=== PATIENT | female | born 1985 | race Caucasian/White ===

== ENCOUNTER 2020-05-07 15:02 | Outpatient (REF) | payer OTHER, SELFPAY ==
--- NOTE | 2020-05-07 15:29 | XR_ITS ---
EXAMINATION: XR WRIST, LEFT CLINICAL INFORMATION: Unspecified fracture of the lower end of the left radius. COMPARISON: 04/14/2020 TECHNIQUE: PA, lateral, and oblique views of the left wrist. FINDINGS: Intra-articular comminuted distal left radial fracture is again noted. Alignment is near-anatomic. There is early callus formation noted. The carpal rows are well aligned. Mild soft tissue swelling. IMPRESSION: Comminuted intra-articular distal left radial fracture with near-anatomic alignment. Early callus formation.
== END 2020-05-07 15:03 | disposition home or self-care (01) ==
LOC: HO.HOSX 15:02
PROVIDERS: PCP Internal Medicine; Visit Provider Physician Assistant
DX: S52.502A Unspecified fracture of the lower end of left radius, initial encounter for closed fracture (principal); S52.532A Colles' fracture of left radius, initial encounter for closed fracture; X58.XXXA Exposure to other specified factors, initial encounter; Y93.9 Activity, unspecified; Y92.9 Unspecified place or not applicable; Y99.8 Other external cause status
CPT/HCPCS: 29075; 73110; 99212

== ENCOUNTER 2020-05-28 14:38 | Outpatient (REF) | payer OTHER, SELFPAY ==
--- NOTE | 2020-05-28 14:43 | XR_ITS ---
EXAMINATION: XR WRIST, LEFT CLINICAL INFORMATION: Fracture lower end of left radius and COMPARISON: Left wrist 05/07/2020 TECHNIQUE: PA, lateral, and oblique views of the left wrist. FINDINGS: There is a comminuted fracture distal radius intra-articular extension, stable. No additional fractures seen. There is mild dorsal and palmar wrist soft tissue swelling. XR/XR wrist LT 2V IMPRESSION: Comminuted fracture distal radius with intra-articular extension and mild soft tissue swelling. There is likely some callus formation visualized.
== END 2020-05-28 14:39 | disposition home or self-care (01) ==
LOC: HO.HOSX 14:38
PROVIDERS: Visit Provider Physician Assistant
DX: S52.502D Unspecified fracture of the lower end of left radius, subsequent encounter for closed fracture with routine healing (principal)
CPT/HCPCS: 73100; 99212

== ENCOUNTER 2021-01-22 22:49 | Emergency (ER) | payer OTHER, SELFPAY ==
--- NOTE | 2021-01-22 23:16 | PC.NURSE ---
PT REPORTS THAT SHE NEEDS TO LEAVE, BECAUSE HER ONLY RIDE HOME NEEDS TO LEAVE NOW.
== END 2021-01-22 23:20 | disposition left against medical advice (07) ==
PROVIDERS: Emergency Provider Emergency Medicine
DX: M79.89 Other specified soft tissue disorders (principal)

== ENCOUNTER 2022-01-22 23:24 | Emergency (ER) | payer MEDICAID, SELFPAY ==
[2022-01-22 23:29] VITALS: BP 142/88; PULSE 87; RESP 18; TEMP 37.2; O2SAT 98; BMI 28.2
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
--- NOTE | 2022-01-23 02:35 | PC.NURSE ---
medicated per provider order.
== END 2022-01-23 03:02 | disposition home or self-care (01) ==
PROVIDERS: Emergency Provider Emergency Medicine
DX: L03.116 Cellulitis of left lower limb (principal); Z79.899 Other long term (current) drug therapy
CPT/HCPCS: 99282; 99283

== ENCOUNTER 2022-02-05 11:21 | Emergency (ER) | payer OTHER, SELFPAY ==
[2022-02-05 11:48] VITALS: BP 113/78; PULSE 62; RESP 18; TEMP 36.6; O2SAT 96; BMI 28.0
--- NOTE | 2022-02-05 12:32 | ED.GENADULT ---
HPI - General Adult General Chief complaint: General Medical Stated complaint: missed methadone dose Time Seen by Provider: 02/05/22 12:23 Source: patient Mode of arrival: ambulatory Limitations: no limitations History of Present Illness HPI narrative: 36-year-old female with a history of opioid use disorder on methadone 40 mg per day who presents to the ER for dose of her methadone. She was unable to get her clinic today. She uses [facility] on [address] and just started there less than 2 weeks ago. She was unfamiliar with their weekend hours. She reports she was sober for 2.5 years and relapsed in August. She lives with her boyfriend who is sober and a good support system for her. complaint: missed methadone dose Relieving factors: none Exacerbating factors: none Associated symptoms: denies other symptoms Treatments prior to arrival: none Related Data Home Medications Medication Instructions Recorded Confirmed dextroamphetamine-amphetamine ER 1 cap PO BID 04/22/20 25 mg 24hr capsule,extend release escitalopram oxalate 10 mg tablet 10 mg PO QAM 04/22/20 furosemide 20 mg tablet 20 mg PO DAILY 04/22/20 lorazepam 1 mg tablet mg PO 04/22/20 oxycodone 5 mg tablet mg PO Q6H PRN 04/22/20 zolpidem 5 mg tablet 5 mg PO BEDTIME PRN 04/22/20 Previous Rx's Medication Instructions Recorded arm brace (Wrist Brace) #1 ea 05/29/20 doxycycline hyclate 100 mg tablet 100 mg PO BID #20 tabs 01/23/22 Allergies Allergy/AdvReac Type Severity Reaction Status Date / Time amoxicillin [From Augmentin] Allergy Unknown Swelling Verified 02/05/22 11:48 clavulanic acid Allergy Unknown Swelling Verified 01/22/22 23:28 [From Augmentin] Review of Systems Review of Systems: Constitutional: No Fever, No Chills Cardiovascular: No Chest Pain, No SOB Respiratory: No Cough, No Sputum Gastrointestinal: No Nausea, No Vomiting, No Diarrhea, No abdominal Pain Musculoskeletal: No joint pain, No Myalgias Skin: No Skin Lesions, No rash Neuro: No Weakness, No Numbness, No Dizziness, No Headache Psych: +Anxiety/Panic, No Depression, No SI or HI Heme/Lymph: + Bruising, No Lymphadenopathy PMFSH Social History Social History Advance Directives: No Advance Directives Information Provided: No Physical Exam ED Vital Signs: Vital Signs - 24 hr 02/05/22 11:48 Temperature 97.9 F Pulse Rate 62 Respiratory Rate 18 Blood Pressure 113/78 Pulse Oximetry 96 Oxygen Delivery Method Room Air BMI result Body Mass Index 28.0 Appearance: Alert. Oriented X3. No acute distress. Eyes: Pupils equal, round and reactive to light. ENT: Pharynx normal. Neck: Normal inspection. Ecchymosis on right lateral neck consistent with reported hickey. Respiratory: No respiratory distress. Speaks in complete sentences Abdomen: Soft and nontender. +BS x4 Skin: Skin warm and dry. Normal skin color. Normal skin turgor. No rashes. Extremities: Left upper extremity with evidence of old track coronado on her left forearm no evidence of active cellulitis Neuro: Oriented X 3. No motor deficit. No sensory deficit. Makes eye contact, conversant, nonfocal and appropriate Course Course Course Narrative: 36-year-old female presents to the ER for methadone dosing. She recently started at a clinic and did not other hours today. Her usual doses 40 mg. Because we are unable to confirm and verify this, we will give her 30 mg which is the maximum dose able to be provided in the ER without verification. She is thankful and agreeable. She reports she has maintained sobriety due to the support of her boyfriend. She is stable for discharge home. Last dose letter provided. Critical Care Time Critical Care Time Critical Care Time: No Discharge Plan Discharge Clinical Impression: Opioid use disorder Patient Disposition: Home, Self-Care Instructions: Opioid Use Disorder (ED) Additional Instructions: Your given 30 mg of methadone today. This was because your actual dose could not be confirmed. Follow-up with your methadone clinic tomorrow for your next dose. Prescriptions: No Action doxycycline hyclate 100 mg tablet 100 mg PO BID Qty: 20 0RF (DME) Wrist Brace Misc See Rx Instructions .MEDSUPPLY Qty: 1 0RF Rx Instructions: Comfort Form Wrist LT M
[2022-02-05] MEDS: methADONE HCl 20 MG/2 ML ORAL.CONC 30 MG PO (13:20)
--- NOTE | 2022-02-05 13:48 | MHC.RECOVSUP ---
Recovery Support note: Patient is a 36 year old Mauritian speaking female who presented to [facility] ED due to missing her methadone dose at the [facility]. Patient reports she receives 40mg and that she last dosed yesterday morning at 930. Patient has ID scanned into EMR. This writer producer contacted [facility] and left a message for dose verification. Discussed case with ED provider. Plan for patient to get 30mg and a last dose letter to present to her clinic tomorrow. Patient is in agreement with this plan.
== END 2022-02-05 13:30 | disposition home or self-care (01) ==
PROVIDERS: Emergency Provider Emergency Medicine; PCP Family Medicine
DX: F11.20 Opioid dependence, uncomplicated (principal); F41.9 Anxiety disorder, unspecified; Z79.899 Other long term (current) drug therapy
CPT/HCPCS: 99282; 99283

== ENCOUNTER 2023-01-15 12:55 | Emergency (ER) | payer OTHER, SELFPAY ==
--- NOTE | ~2023-01-15 | US_ITS ---
EXAMINATION: US VENOUS ULTRASOUND WITH DOPPLER LOWER EXTREMITY, LEFT CLINICAL INFORMATION: Left lower extremity pain COMPARISON: None available. TECHNIQUE: Ultrasound of the deep veins is performed from the hip to the calf with compression sonography and color and pulse Doppler assessment. Spectral analysis with color-flow imaging is performed. FINDINGS: There is normal venous compression and respiratory variation and augmented flow. The visualized common femoral vein, superficial femoral vein, profunda femoral vein, popliteal vein, shows no evidence of deep venous thrombosis. Significant edema in the calf. The calf veins are not visualized, not evaluated. There is no significant popliteal fossa cyst. . Prominent left groin lymph nodes largest measuring 2.6 x 0.6 x 1.3 cm (0.6 cm AP) If the patient's symptoms persist, followup ultrasound in 5 days 7 days might be of value to exclude proximal propagation from a non-visualized calf vein. US/US venous duplex LE LT IMPRESSION: No DVT demonstrated in the left lower extremity from the common femoral vein to the popliteal vein. The calf veins are not visualized. If the patient's symptoms persist, followup ultrasound in 5 days 7 days might be of value to exclude proximal propagation from a non-visualized calf vein. Significant calf edema. Nonspecific left groin lymph nodes.
[2023-01-15 14:04] VITALS: BP 166/91; PULSE 77; RESP 16; TEMP 36.6; O2SAT 96; BMI 23.1
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
[2023-01-15 15:05] LABS: MANUAL DIFF FLAG NO
[2023-01-15 15:07] LABS: Basophils Absolute Auto 0.1 X10*3/uL (0.0-0.2); Basophils Percent Auto 1.3 % (0-2); Eosinophils Absolute Auto 0.1 X10*3/uL (0.0-0.4); Hematocrit 37.6 % (37.0-47.0); Hemoglobin 12.4 g/dl (12.0-16.0); Imm Gran Abs Auto 0.01 X10*3/uL (0.00-0.03); Imm Gran Pct Auto 0.3 % (0.0-0.4); Lymphocytes Absolute Auto 1.8 X10*3/uL (1.2-4.9); Lymphocytes Percent Auto 45.1 % (20-40); Mean Corpuscular Hemoglobin 28.5 pg (27.0-33.0); Mean Corpuscular Volume 86.4 fL (80.0-98.0); Mean Platelet Volume 10.3 fL (9.4-12.3); Monocytes Absolute Auto 0.3 X10*3/uL (0.1-1.2); Monocytes Percent Auto 7.8 % (2-11); Neutrophils Absolute Auto 1.7 x10*3/uL (2.0-8.3); Neutrophils Percent Auto 43.5 % (45-73); Platelet Count 145 X10*3/uL (160-400); Red Blood Count 4.35 X10*6/uL (4.20-5.50)
[2023-01-15 15:21] LABS: Alanine Aminotransferase 17 U/L (0-31); Alkaline Phosphatase 130 U/L (39-117); Anion Gap 11 (12-20); Aspartate Amino Transferase 47 U/L (5-31); Bilirubin Total 1.1 mg/dL (0.0-1.0); Blood Urea Nitrogen 7 mg/dL (9-16); Calcium 9.3 mg/dL (8.4-10.2); Carbon Dioxide 26 mmol/L (22-29); Chloride 107 mmol/L (96-108); Estimated Glomerular Filt Rate > 60; Glucose Random 94 mg/dL (60-115); Potassium 3.7 mmol/L (3.3-5.1); Sodium 140 mmol/L (135-145); Total Protein 9.5 g/dL (6.5-8.0)
--- NOTE | 2023-01-15 15:22 | PC.NURSE ---
pt belongings in [place]
[2023-01-15 15:34] VITALS: BP 110/71; PULSE 64; RESP 18; O2SAT 97
[2023-01-15 16:15] VITALS: BP 100/54; PULSE 67; RESP 13; O2SAT 97
[2023-01-15] MEDS: cephALEXin 500 MG CAPSULE PO (16:54)
[2023-01-15] MEDS: Doxycycline Monohydrate 100 MG CAPSULE PO (16:54)
--- NOTE | 2023-01-15 17:05 | PC.NURSE ---
pt reports that if we do not admit her to the hospital she will not take her antibiotics. educated pt against this mindset as it is not beneficial to her health.
[2023-01-15 17:33] LABS: Ethanol 42 mg/dL
[2023-01-15 17:37] LABS: Acetaminophen LAB < 17 mcg/mL (<30); Salicylate < 5.0 mg/dL (15-30)
[2023-01-15 20:01] VITALS: BP 116/75; PULSE 60; RESP 16; TEMP 36.6; O2SAT 97
--- NOTE | 2023-01-15 20:04 | MHC.EDTECH ---
This tech assumed care of pt at 1900, Vitals taken and Urine obtained and sent to lab. Patient is resting comfortably at this time. Call abdi within reach
[2023-01-15 20:33] LABS: Amphetamine Screen Urine Not Detected (Not Detect); Barbiturates, Urine Not Detected (Not Detect); Benzodiazepines Screen Urine Not Detected (Not Detect); Cannabinoid Screen Urine POSITIVE (Not Detect); Cocaine Screen Urine POSITIVE (Not Detect); Fentanyl, urine POSITIVE (Not Detect); Opiate Screen Urine POSITIVE (Not Detect); Phencyclidine Screen Urine Not Detected (Not Detect)
[2023-01-15 22:44] VITALS: BP 123/82; PULSE 70; RESP 16; TEMP 36.6; O2SAT 96
[2023-01-16] MEDS: cephALEXin 500 MG CAPSULE PO (00:31)
[2023-01-16 01:03] VITALS: BP 106/64; PULSE 62; RESP 16; O2SAT 97
[2023-01-16 02:00] VITALS: BP 109/58; PULSE 72; RESP 20; TEMP 36.7; O2SAT 94
== END 2023-01-16 02:00 | disposition home or self-care (01) ==
PROVIDERS: Nurse Practitioner Family; Physician Assistant; Emergency Provider Internal Medicine
DX: L03.116 Cellulitis of left lower limb (principal); R60.0 Localized edema; F10.129 Alcohol abuse with intoxication, unspecified; Y90.2 Blood alcohol level of 40-59 mg/100 ml; Z79.899 Other long term (current) drug therapy
CPT/HCPCS: 36415; 80053; 80143; 80179; 80307; 83605; 85025; 87040; 93971; 99284

== ENCOUNTER 2023-06-25 11:33 | Inpatient (IN) | payer MEDICAID, SELFPAY ==
--- NOTE | ~2023-06-25 | XR_ITS ---
EXAMINATION: XR CHEST CLINICAL INFORMATION: Chest pain COMPARISON: None available. TECHNIQUE: Upright frontal portable view of the chest was obtained. FINDINGS: Devices overlie the patient. There is moderate rotation to the right. Cardiac size ajit and vasculature are within normal limits. No alveolar edema or focal consolidation. No pleural fluid or pneumothorax. The region of the inferior left glenoid is difficult to evaluate due to superimposed monitoring devices XR/XR chest 1V IMPRESSION: No focal pneumonia or alveolar edema
--- NOTE | 2023-06-25 11:49 | ED.NAVMDI ---
HPI - Nausea/Vomiting/Diarrhea General Chief complaint: ETOH/Substance Use Stated complaint: HEROIN WITHDRAWAL,LAST USE 2 DAYS AGO PER EMS Time Seen by Provider: 06/25/23 11:44 Source: patient and EMS Mode of arrival: EMS History of Present Illness HPI Narrative: 37 years old female brought in because nausea vomiting unable to keep anything down. She has history of opioid use disorder last use 2 days ago. MD elicited complaint: nausea and vomiting Onset (ago): day(s) (2) Description of vomiting: watery Description of diarrhea: watery Associated nausea: Yes Associated abdominal pain: No Location of pain: none Exacerbating factors: none Relieving factors: none Related Data Home Medications Medication Instructions Recorded Confirmed No Known Home Meds 06/25/23 06/25/23 Allergies Allergy/AdvReac Type Severity Reaction Status Date / Time amoxicillin [From Augmentin] Allergy Unknown Swelling Verified 06/25/23 11:57 clavulanic acid Allergy Unknown Swelling Verified 06/25/23 11:57 [From Augmentin] From AUGMENTIN Allergy Severe SWELLING Uncoded 06/25/23 11:57 From Augmentin Allergy Severe SWELLING Uncoded 06/25/23 11:57 Review of Systems Constitutional: Constitutional: Denies fever(s) Gastrointestinal: Gastrointestinal: Reports nausea and Reports vomiting PMFSH Past Medical History PMFSH Narrative: Substance abuse Medical History Alcohol use disorder Social History Social History Alcohol intake: current Alcohol intake frequency: 0-2 drinks per day Alcohol type: beer Patient Tobacco Use Status: Current everyday Tobacco user Smoked in Last 30 Days: Yes Use of substances other than those prescribed or required for medical reasons: Yes Substance Use Type: Heroin Substance Use Frequency: Chronic Longstanding Last Used Substance: Days (ago) Any prior treatment program specific to substance use: No Advance Directives: No Advance Directives Information Provided: No Nutrition Risks: No Nutritional Risk Patient : No Physical Exam Vital Signs: Vital Signs: Last Vital Signs Temp 98.8 F 06/25/23 22:59 Pulse 69 06/26/23 03:34 Resp 19 06/26/23 03:34 BP 129/69 06/26/23 03:34 Pulse Ox 98 06/26/23 03:34 O2 Del Method Room Air 06/26/23 03:34 BMI result Body Mass Index 26.2 Const: General: in distress Nutritional Appearance: malnourished HEENT: Head: Yes normal to inspection Face and sinus: Yes normal facial exam Neck: Neck: Yes normal visual inspection Chest: Chest palpation & inspection: normal inspection of the chest Resp: Effort & Inspection: normal respiratory effort Cardio: Jugular venous distension: no JVD Rate: regular rate Rhythm: regular rhythm GI: Inspection: Yes normal to inspection Palpation (GI): Soft to palpation, not firm and nontender Skin: General skin exam: no rashes or lesions noted and elasticity normal Lesions: no lesions Rashes: no rashes Neuro: Cranial nerves: Yes CN's II-XII intact bilaterally Course Reevaluation(s) Reevaluation #1: not better will admit Medications Administered Generic Name Dose Route Start Last Admin Trade Name Freq PRN Reason Stop Dose Admin Enoxaparin Sodium 40 mg 06/25/23 16:45 06/25/23 17:10 Enoxaparin Sodium 40 Mg/0.4 Ml Syringe SUBCUT 40 mg Q24H FLOR Administration Famotidine 20 mg 06/25/23 21:00 06/25/23 20:26 Famotidine 20 Mg Tablet PO 20 mg BID@0630,1630 LFOR Administration Folic Acid 1 mg 06/25/23 16:50 06/25/23 17:09 Folic Acid 1 Mg Tablet PO 06/28/23 16:49 1 mg DAILY FLOR Administration Multivitamins/Vitamin C 1 tab 06/25/23 16:50 06/25/23 17:09 Multivitamin Tablet PO 06/28/23 16:49 1 tab DAILY FLOR Administration Sodium Chloride 3 ml 06/26/23 00:00 06/26/23 00:09 0.9 % Sodium Chloride Flush 3 Ml Syringe IVFLUSH Not Given QSHIFT FLOR Thiamine HCl 100 mg 06/25/23 16:50 06/25/23 17:09 Thiamine Hcl 100 Mg Tablet PO 06/28/23 16:49 100 mg DAILY FLOR Administration Discontinued Medications Generic Name Dose Route Start Last Admin Trade Name Freq PRN Reason Stop Dose Admin Sodium Chloride 1,000 mls @ 999 mls/hr 06/25/23 12:00 06/25/23 13:42 Ns IVCONT 06/25/23 13:00 Infused .Q1H1M FLOR Infusion Sodium Chloride 1,000 mls @ 999 mls/hr 06/25/23 15:00 06/25/23 16:51 Ns IVCONT 06/25/23 16:00 Infused .Q1H1M FLOR Infusion Methadone HCl 30 mg 06/25/23 16:51 06/25/23 17:09 Methadone Hcl 20 Mg/2 Ml Oral.Conc PO 06/25/23 16:52 30 mg ONCE ONE Administration Ondansetron HCl 4 mg 06/25/23 11:47 06/25/23 12:29 Ondansetron Hcl 4 Mg/2 Ml Vial IVPUSH 06/25/23 11:48 4 mg ONCE ONE Administration Phenobarbital Sodium 218.8 mg 06/25/23 17:30 06/25/23 17:32 Phenobarbital Sodium 130 Mg/Ml Im Once IM 06/25/23 17:31 218.8 mg ONCE ONE Administration Protocol Phenobarbital Sodium 164.1 mg 06/25/23 20:30 06/25/23 23:04 Phenobarbital Sodium 130 Mg/Ml Vial Im Q3hx2 IM 06/25/23 23:31 164.1 mg Q3H FLOR Administration Protocol Medical Decision Making Medical Decision Making [facility] Narrative: Patient presented with nausea vomiting possible withdrawal syndrome will establish IV administer fluid reassess on reexam 1600 not better Differential Diagnosis Differential Diagnoses: The differential diagnosis associated with the presentation includes Dehydration/renal failure/heroin withdrawal Admission/Observation Consideration of admission/observation: Escalation of care including admission/observation considered Consult Healthcare Provider Management of the patient was discussed with: Hospitalist Lab Data [facility] Lab Attestation statement: I reviewed the patient's lab results. 06/25/23 12:08 06/25/23 12:08 Labs: Lab Results 06/25/23 Range/Units 12:08 WBC 6.3 (4.8-10.8) X10*3/uL RBC 5.41 D (4.20-5.50) X10*6/uL Hgb 15.8 D (12.0-16.0) g/dl Hct 45.0 (37.0-47.0) % MCV 83.2 (80.0-98.0) fL MCH 29.2 (27.0-33.0) pg MCHC 35.1 H (31.0-35.0) g/dl RDW 13.9 (11.0-16.0) % Plt Count 161 (160-400) X10*3/uL MPV 10.5 (9.4-12.3) fL Immature Gran % (Auto) 0.3 (0.0-0.4) % Neut % (Auto) 79.8 H (45-73) % Lymph % (Auto) 14.7 L (20-40) % [place] % (Auto) 5.0 (2-11) % Eos % (Auto) 0.0 (0-4) % Baso % (Auto) 0.2 (0-2) % Lymph # (Auto) 0.9 L (1.2-4.9) X10*3/uL [place] # (Auto) 0.3 (0.1-1.2) X10*3/uL Eos # (Auto) 0.0 (0.0-0.4) X10*3/uL Baso # (Auto) 0.0 (0.0-0.2) X10*3/uL Abs Immat Gran (auto) 0.02 (0.00-0.03) X10*3/uL Absolute Neuts (auto) 5.0 (2.0-8.3) x10*3/uL Absolute Nucleated RBC 0.000 (0.0-0.012) X10*3/uL Nucleated RBC % (auto) 0.0 (0.0-0.2) /100WBC Sodium 140 (135-145) mmol/L Potassium 3.2 L (3.3-5.1) mmol/L Chloride 107 (96-108) mmol/L Carbon Dioxide 22 (22-29) mmol/L Anion Gap 14 (12-20) BUN 6 L (9-16) mg/dL Creatinine 0.70 (0.5-1.4) mg/dL Estim Creat Clear Calc 105.1 Estimated GFR > 60 Random Glucose 132 H (60-115) mg/dL Calcium 9.5 (8.4-10.2) mg/dL Total Bilirubin 2.1 H (0.0-1.0) mg/dL AST 91 H (5-31) U/L ALT 32 H (0-31) U/L Alkaline Phosphatase 128 H (39-117) U/L Total Creatine Kinase 649 H (26-140) U/L Troponin I High Sens 6.2 (<3.5-17.0) ng/L Total Protein 9.5 H (6.5-8.0) g/dL Albumin 3.9 (3.5-5.0) g/dL Beta HCG, Quant < 2 mIU/mL Ethyl Alcohol < 10 mg/dL Independent Historian Clinical information obtained from an independent historian. History obtained from or confirmed by: EMS Discharge Plan Discharge Clinical Impression: Vomiting, Rhabdomyolysis, Acute opioid withdrawal Patient Disposition: Admitted As Inpatient
[2023-06-25 11:50] VITALS: BP 142/98; BP 153/87; PULSE 54; PULSE 57; RESP 18; TEMP 37.1; O2SAT 96; BMI 26.2
[2023-06-25 12:12] LABS: MANUAL DIFF FLAG NO
[2023-06-25 12:23] LABS: Basophils Percent Auto 0.2 % (0-2); Hemoglobin 15.8 g/dl (12.0-16.0); Imm Gran Abs Auto 0.02 X10*3/uL (0.00-0.03); Imm Gran Pct Auto 0.3 % (0.0-0.4); Lymphocytes Absolute Auto 0.9 X10*3/uL (1.2-4.9); Lymphocytes Percent Auto 14.7 % (20-40); Mean Corpuscular HGB Conc 35.1 g/dl (31.0-35.0); Mean Corpuscular Hemoglobin 29.2 pg (27.0-33.0); Mean Corpuscular Volume 83.2 fL (80.0-98.0); Mean Platelet Volume 10.5 fL (9.4-12.3); Monocytes Absolute Auto 0.3 X10*3/uL (0.1-1.2); Neutrophils Percent Auto 79.8 % (45-73); Platelet Count 161 X10*3/uL (160-400); Red Blood Count 5.41 X10*6/uL (4.20-5.50); Red Cell Distribution Width 13.9 % (11.0-16.0); White Blood Count 6.3 X10*3/uL (4.8-10.8)
[2023-06-25] MEDS: ondansetron HCL 4 MG/2 ML VIAL IVPUSH (12:29)
[2023-06-25] MEDS: 0.9 % Sodium Chloride 1,000 ML 999 ML IVCONT ×2 (12:30→15:23)
--- NOTE | 2023-06-25 12:31 | PC.NURSE ---
Belongings brought to [facility] by security.
[2023-06-25 12:33] VITALS: BP 153/87; PULSE 57; PULSE 74; RESP 18; TEMP 37.1; O2SAT 96
[2023-06-25 12:36] LABS: Alanine Aminotransferase 32 U/L (0-31); Albumin Level 3.9 g/dL (3.5-5.0); Alkaline Phosphatase 128 U/L (39-117); Anion Gap 14 (12-20); Aspartate Amino Transferase 91 U/L (5-31); Bilirubin Total 2.1 mg/dL (0.0-1.0); Blood Urea Nitrogen 6 mg/dL (9-16); Calcium 9.5 mg/dL (8.4-10.2); Carbon Dioxide 22 mmol/L (22-29); Chloride 107 mmol/L (96-108); Creatinine Clr Calc Pharmacy 105.1; Estimated Glomerular Filt Rate > 60; Ethanol < 10 mg/dL; Glucose Random 132 mg/dL (60-115); Potassium 3.2 mmol/L (3.3-5.1); Sodium 140 mmol/L (135-145); Total Protein 9.5 g/dL (6.5-8.0)
[2023-06-25 12:42] LABS: Troponin-I High Sensitivity 6.2 ng/L (<3.5-17.0)
[2023-06-25 12:48] LABS: HCG Quantitative < 2 mIU/mL
--- NOTE | 2023-06-25 16:14 | PHA.MEDREC ---
Pharmacy Consult ? Medication Reconciliation Pharmacy has completed the medication reconciliation. Patient stated they take Ambien, Ativan, and Adderall regularly. However, PDMP and claim history shows neither medications being filled for patient. Leaving as no known home meds because of no fill history.
--- NOTE | 2023-06-25 16:15 | P.HPHOSP_ITS ---
<Statement entered by Kamryn Macias MD - 07/08/23 17:59> the patient was seen and evaluated with LISA Lewis. I agree with his note, assessment and plan with the following. In summary, a 37-year-old female with a PMH significant for?opioid and alcohol use disorder who presents to the ED with?chills, tremors, and intractable nausea and vomiting. Pt appears restless, uncomfortable, shaking at time of interview, is not the most cooperative in answering questions in detail or allowing for a full physical exam. Pt will be admitted to the hospital for treatment and further evaluation of acute opioid and alcohol withdrawal. Acute alcohol and opioid withdrawal IVF and ondansetron prn start Phenobarb protocol folic acid 1mg, Thiamine 100 mg daily Addiction team consult Rest of evaluations by LISA note. History of Present Illness Date of Service: 06/25/23 Attending physician on admission: Kamryn Macias Chief Complaint: Opioid and alcohol withdrawal Pt is a 37-year-old female with a PMH significant for?opioid and alcohol use disorder who presents to the ED with?chills, tremors, and intractable nausea and vomiting. Pt appears restless, uncomfortable, shaking at time of interview, is not the most cooperative in answering questions in detail or allowing for a full physical exam. Pt has a long history of polysubstance use on a reported 40mg of Medadone daily, though not verified. States she last use IV heroin 3 days prior. Also reports drinking 6-10 nips daily, with last drink the day before yesterday. Has been feeling ill since at least last night. Complains of chills, sharp pain in her ribs, diffuse abdominal pain, muscle aches, and nausea and vomiting. Patient simply states ?I'm withdrawing?. In the ED pt was hypertensive to 153/87, vitals otherwise WNL. Labs were significant for potassium 3.2, bilirubin 2.1, AST 91, ALT 32, alk-phos 128, and CPK 649. Renal function baseline with creatinine 0.70 and estimated creatinine clearance 105.1. CXR showed no focal pneumonia or alveolar edema. Pt was treated with IVF and ondansetron. Pt will be admitted to the hospital for treatment and further evaluation of acute opioid and alcohol withdrawal. Review of Systems 2 Review of Systems: Chills, tremors, body aches Nausea, vomiting Diffuse abdominal pain [facility] Medical History Alcohol use disorder Social History Alcohol intake: current Alcohol intake frequency: 0-2 drinks per day Alcohol type: beer Patient Tobacco Use Status: Current everyday Tobacco user Substance Use Type: Heroin Meds Allergies Allergy/AdvReac Type Severity Reaction Status Date / Time amoxicillin [From Augmentin] Allergy Unknown Swelling Verified 06/25/23 11:57 clavulanic acid Allergy Unknown Swelling Verified 06/25/23 11:57 [From Augmentin] From AUGMENTIN Allergy Severe SWELLING Uncoded 06/25/23 11:57 From Augmentin Allergy Severe SWELLING Uncoded 06/25/23 11:57 Home Medications Medication Instructions Recorded Confirmed Last Taken Type No Known Home Meds 06/25/23 06/25/23 Unknown History Physical Exam 2 Vital Signs and Narrative: Vital Signs: Last Vital Signs Temp 98.7 F 06/25/23 12:33 Pulse 57 06/25/23 12:33 Resp 18 06/25/23 12:33 BP 153/87 H 06/25/23 12:33 Pulse Ox 96 06/25/23 12:33 O2 Del Method Room Air 06/25/23 12:33 BMI result Body Mass Index 26.2 Physical exam limited due to pt non-compliance General: AOx3, disheveled, uncomfortable looking, in no acute distress; patient shaking, diaphoretic Resp: CTA bilaterally CVS: S1, S2, RRR GI: +BS, no distention, diffuse tenderness Skin: Warm, dry Neuro: Cranial nerves II-XII grossly intact bilaterally. Motor grossly intact bilaterally Extremities: No edema Results Labs 06/25/23 12:08 06/25/23 12:08 Labs: Laboratory Results - last 24 hr 06/25/23 12:08 MCV 83.2 MCH 29.2 MCHC 35.1 H RDW 13.9 Plt Count 161 MPV 10.5 Immature Gran % (Auto) 0.3 Neut % (Auto) 79.8 H Lymph % (Auto) 14.7 L [place] % (Auto) 5.0 Eos % (Auto) 0.0 Baso % (Auto) 0.2 Lymph # (Auto) 0.9 L [place] # (Auto) 0.3 Eos # (Auto) 0.0 Baso # (Auto) 0.0 Abs Immat Gran (auto) 0.02 Absolute Neuts (auto) 5.0 Absolute Nucleated RBC 0.000 Nucleated RBC % (auto) 0.0 Anion Gap 14 Estim Creat Clear Calc 105.1 Estimated GFR > 60 Random Glucose 132 H Calcium 9.5 Total Bilirubin 2.1 H AST 91 H ALT 32 H Alkaline Phosphatase 128 H Total Creatine Kinase 649 H Total Protein 9.5 H Albumin 3.9 Beta HCG, Quant < 2 Ethyl Alcohol < 10 Imaging Radiologist's Impressions: Impressions Chest X-Ray 06/25/23 12:28 IMPRESSION: No focal pneumonia or alveolar edema Assessment and Plan (1) Alcohol withdrawal: Status: Acute (2) Opioid withdrawal: Status: Acute Plan Pt is a 37-year-old female with a PMH significant for?opioid and alcohol use disorder who presents to the ED with?chills, tremors, and intractable nausea and vomiting. Pt appears restless, uncomfortable, shaking at time of interview, is not the most cooperative in answering questions in detail or allowing for a full physical exam. Pt will be admitted to the hospital for treatment and further evaluation of acute opioid and alcohol withdrawal. Acute alcohol withdrawal Moderate shakiness, no hallucinations Received IVF and ondansetron in ED Will start on Phenobarb protocol Daily multivitamin, folic acid 1mg, Thiamine 100 mg daily Famotidine Follow lytes, Mag, BMP CIWA scale Addiction medicine consult Follow on telemetry Opioid withdrawal Pt with long hx of IV heroin use, last used 3 days ago Pt with chills, tremors, diffuse abd pain, body aches Unclear methadone hx Will give 1-time dose of Methadone 30mg Addiction medicine consult Transaminitis Likely secondary to alcohol use disorder Patient received IVF Patient complaining of none localized diffuse abdominal pain Will test for HIV, hepatitis Full Code Attending:?Dr. Macias DVT Prophylaxis: Lovenox Pt will require a hospitalization of at least two nights for treatment of?alcohol and opioid withdrawal. Will be treated with phenobarb protocol, methadone, and close monitoring. Quality Stroke Does the patient have a stroke diagnosis?: No VTE Prior VTE?: No VTE Risk Level:: Medical - moderate - high VTE Device Contraindication: Treatment Not Indicated VTE Drug Contraindication: N/A - Med Ordered
[2023-06-25 16:56] VITALS: BP 153/78; PULSE 80; RESP 22; TEMP 37.1; O2SAT 98
[2023-06-25] MEDS: Multivitamin TABLET 1 TAB PO (17:09)
[2023-06-25] MEDS: Folic Acid 1 MG TABLET PO (17:09)
[2023-06-25] MEDS: methADONE HCl 20 MG/2 ML ORAL.CONC 30 MG PO (17:09)
[2023-06-25] MEDS: Thiamine HCL 100 MG TABLET PO (17:09)
[2023-06-25] MEDS: Enoxaparin Sodium 40 MG/0.4 ML SYRINGE SUBCUT (17:10)
[2023-06-25] MEDS: PHENobarbitaL sodium 130 MG/ML IM ONCE 218.8 MG IM (17:32)
[2023-06-25 20:22] VITALS: BP 136/71; PULSE 80; RESP 17; O2SAT 98
[2023-06-25] MEDS: PHENobarbitaL sodium 130 MG/ML VIAL IM Q3Hx2 164.1 MG IM ×2 (20:25→23:04)
[2023-06-25] MEDS: Famotidine 20 MG TABLET PO (20:26)
[2023-06-25 22:59] VITALS: BP 140/84; PULSE 65; TEMP 37.1; O2SAT 98
[2023-06-26 03:34] VITALS: BP 129/69; PULSE 69; RESP 19; O2SAT 98
--- NOTE | 2023-06-26 03:42 | PC.NURSE ---
cleaned pt and changed as she had urinated herself. Educated on importance of using call abdi when needing to use bathroom. Pt sts that she understands
[2023-06-26 04:43] LABS: HBS Num1 8.16 mIU/mL (0-7.99); HBsAGNum1 0.27 S/CO (0.00-0.99); HIV AB/AG Nonreactive (Nonreactive); HIV Num 1 0.05 S/CO (0.00-0.99); Hepatitis A Antibody IgM 0.31 Index (0-0.79); Hepatitis B Core Antibody Nonreactive (Nonreactive); Hepatitis B Surface Antigen Negative (Negative); ~HepC Num1 14.95 S/CO (0.00-0.79); ~Hepatitis A Antibody IgM Nonreactive (Nonreactive); ~Hepatitis C Antibody Reactive (Nonreactive)
[2023-06-26 05:36] LABS: HBS Num2 7.56 mIU/mL (0-7.99)
[2023-06-26 05:37] LABS: HBS Num3 7.75 mIU/mL (0-7.99); ~Hepatitis B Surface Antibody NONREACTIVE (Nonreactive)
[2023-06-26 06:05] VITALS: BP 142/80; PULSE 79; RESP 16
[2023-06-26] MEDS: Famotidine 20 MG TABLET PO ×2 (06:05→17:11)
[2023-06-26 06:22] LABS: Anion Gap 12 (12-20); Blood Urea Nitrogen 5 mg/dL (9-16); Calcium 8.6 mg/dL (8.4-10.2); Carbon Dioxide 19 mmol/L (22-29); Chloride 112 mmol/L (96-108); Creatinine Clr Calc Pharmacy 108.2; Estimated Glomerular Filt Rate > 60; Glucose Random 165 mg/dL (60-115); Magnesium 1.9 mg/dL (1.6-2.6); Potassium 3.3 mmol/L (3.3-5.1); Sodium 140 mmol/L (135-145)
[2023-06-26 06:28] LABS: Hematocrit 40.3 % (37.0-47.0); Hemoglobin 13.8 g/dl (12.0-16.0); Mean Corpuscular HGB Conc 34.2 g/dl (31.0-35.0); Mean Corpuscular Hemoglobin 29.6 pg (27.0-33.0); Mean Corpuscular Volume 86.5 fL (80.0-98.0); Platelet Count 167 X10*3/uL (160-400); Red Blood Count 4.66 X10*6/uL (4.20-5.50); Red Cell Distribution Width 14.6 % (11.0-16.0)
--- NOTE | 2023-06-26 08:02 | PC.NURSE ---
assumed care of pt at 0700. pt resting quietly on stretcher, sleeping, in no apparent distress. on bedside monitor. rr even/unlabored. call abdi within reach. plan of care ongoing. awaiting inpatient bed placement.
--- NOTE | 2023-06-26 08:36 | MHC.CM.PN ---
CM ATTEMPTED TO MEET WITH PT WHO WAS SLEEPING CM WAS ABLE TO WAKE HER HOWEVER PT STATED SHE DID NOT FEEL WELL ENOUGH TO PARTICIPATE CM TOLD HER IT COULD BE COMPLETED QUICKLY, PT APOLOGIZED AND STATED SHE COULD NOT DO IT CM WILL REVISIT
--- NOTE | 2023-06-26 08:44 | PC.NURSE ---
pt woken up to eat breakfast. pt set up at side of bed. pt aware that we are waiting on a urine sample from her. pt advised to use call abdi when she needs to use commode. pt aware and compliant.
--- NOTE | 2023-06-26 09:31 | MHC.RECOVRN ---
Met with pt in ED9 after consult placed to Addiction Medicine for alcohol and opioid use. Pt had been BIBA after being found on floor in hallway of apartment building in [place]. Pt reported she was withdrawing from alcohol and opioids, reported last use was 2 days ago. Upon evaluation in ED, pt admitted for treatment of alcohol and opioid withdrawal. Pt visibly uncomfortable, restless, goosebumps, laying in bed, eyes closed and difficult to engage in conversation. Pt reports using heroin/fentanyl, 2-3 bundles daily. Pt reports opioid withdrawal symptoms including body aches, anxiety, feeling hot/cold. Pt received 30 mg methadone yesterday and reports it alleviated some withdrawal symptoms, pt would like to continue methadone titration. Pt reports having been on 140 mg in the past and would like to continue after dc from [facility] [place]. Pt denies questions or concerns for t/w. Discussed with Starr Regalado APRN.
[2023-06-26] MEDS: Thiamine HCL 100 MG TABLET PO (09:54)
[2023-06-26] MEDS: Multivitamin TABLET 1 TAB PO (09:54)
[2023-06-26] MEDS: Folic Acid 1 MG TABLET PO (09:54)
[2023-06-26] MEDS: methADONE HCl 20 MG/2 ML ORAL.CONC 40 MG PO (09:55)
[2023-06-26] MEDS: PHENobarbitaL 15 MG TABLET 45 MG PO ×2 (09:55→20:34)
--- NOTE | 2023-06-26 10:08 | PC.NURSE ---
pt medicated per sep. pt requesting nicotine patch, IV fluids, a muscle relaxer and ativan. Dr. Davey notified and aware. sts he will put orders in.
[2023-06-26] MEDS: Lactated Ringers 1,000 ML 100 ML IVCONT ×2 (13:18→22:41)
[2023-06-26] MEDS: LORazepam 0.5 MG TABLET PO (13:23)
[2023-06-26] MEDS: Cyclobenzaprine HCl 5 MG TABLET PO (13:23)
--- NOTE | 2023-06-26 15:49 | PC.NURSE ---
pt to bedside commode. providing UA. pt requesting more snacks.
--- NOTE | 2023-06-26 16:09 | P.PNIM_ITS ---
Subjective Subjective Date of Service: 06/26/23 Interval History: possible Alcohol withdrawal,opioid withdrawal Review of Systems seems some what anxious, has some abdominal soreness which is improving in comparison to yesterday Denies any nausea vomiting Eating better Physical Exam 2 Vital Signs: Vital Signs: Last Vital Signs Temp 98.8 F 06/25/23 22:59 Pulse 79 06/26/23 06:05 Resp 16 06/26/23 06:05 BP 142/80 H 06/26/23 06:05 Pulse Ox 98 06/26/23 03:34 O2 Del Method Room Air 06/26/23 03:34 BMI result Body Mass Index 26.2 General: AOx3,seems somewhat anxious. Resp: CTA bilaterally CVS: S1, S2, RRR GI: +BS, no distention, has mild epigastric discomfort. Skin: Warm, dry Neuro: Cranial nerves II-XII grossly intact bilaterally. Motor grossly intact bilaterally Extremities: No edema Objective Data Active Medications Acetaminophen (Acetaminophen 325 Mg Tablet) 650 mg PO Q6H PRN PRN Reason: Pain, Mild (Pain Scale 1-3) Benzonatate (Benzonatate 100 Mg Capsule) 100 mg PO TID PRN PRN Reason: Cough Cyclobenzaprine HCl (Cyclobenzaprine Hcl 5 Mg Tablet) 5 mg PO TID PRN PRN Reason: Muscle Spasm Last Admin: 06/26/23 13:23 Dose: 5 mg Documented By: TIKI Docusate Sodium (Docusate Sodium 100 Mg Capsule) 100 mg PO DAILY PRN PRN Reason: Constipation Enoxaparin Sodium (Enoxaparin Sodium 40 Mg/0.4 Ml Syringe) 40 mg SUBCUT Q24H [facility] Last Admin: 06/25/23 17:10 Dose: 40 mg Documented By: RONY Famotidine (Famotidine 20 Mg Tablet) 20 mg PO BID@0630,1630 [facility] Last Admin: 06/26/23 06:05 Dose: 20 mg Documented By: OTONIEL Folic Acid (Folic Acid 1 Mg Tablet) 1 mg PO DAILY [facility] Stop: 06/28/23 16:49 Last Admin: 06/26/23 09:54 Dose: 1 mg Documented By: TIKI Lactated Ringer's (Lr) 1,000 mls @ 100 mls/hr IVCONT .Q10H [facility] Last Admin: 06/26/23 13:18 Dose: 100 mls/hr Documented By: TIKI Melatonin (Melatonin 3 Mg Tablet) 6 mg PO BEDTIME PRN PRN Reason: Insomnia Multivitamins/Vitamin C (Multivitamin Tablet) 1 tab PO DAILY [facility] Stop: 06/28/23 16:49 Last Admin: 06/26/23 09:54 Dose: 1 tab Documented By: TIKI Nicotine (Nicotine 21 Mg Patch.Td24) 21 mg TRANSDERMA DAILY [facility] Ondansetron HCl (Ondansetron Hcl 4 Mg/2 Ml Vial) 4 mg IVPUSH Q8H PRN PRN Reason: Nausea and Vomiting Pharmacy Consult (Consult Rx Etoh Phenob Im/Po) 1 each MISCELLANE ONCE PRN; Protocol PRN Reason: Consult order Phenobarbital (Phenobarbital 15 Mg Tablet) 45 mg PO BID [facility]; Protocol Stop: 06/27/23 21:01 Last Admin: 06/26/23 09:55 Dose: 45 mg Documented By: TIKI Phenobarbital (Phenobarbital 15 Mg Tablet) 15 mg PO BID [facility]; Protocol Stop: 06/29/23 21:01 Phenobarbital (Phenobarbital 15 Mg Tablet) 15 mg PO DAILY [facility]; Protocol Stop: 07/01/23 09:01 Sodium Chloride (0.9 % Sodium Chloride Flush 3 Ml Syringe) 3 ml IVFLUNEW [facility] Last Admin: 06/26/23 07:52 Dose: Not Given Documented By: TIKI Non-Admin Reason: Med Not Available Thiamine HCl (Thiamine Hcl 100 Mg Tablet) 100 mg PO DAILY [facility] Stop: 06/28/23 16:49 Last Admin: 06/26/23 09:54 Dose: 100 mg Documented By: TIKI Labs 06/26/23 05:07 06/26/23 05:07 Labs: Laboratory Results - last 24 hr 06/25/23 06/26/23 17:33 05:07 MCV 86.5 MCH 29.6 MCHC 34.2 RDW 14.6 Plt Count 167 MPV 11.0 Absolute Nucleated RBC 0.000 Nucleated RBC % (auto) 0.0 Anion Gap 12 Estim Creat Clear Calc 108.2 Estimated GFR > 60 Random Glucose 165 H Calcium 8.6 D Magnesium 1.9 Hepatitis A IgM Ab Nonreactive Hep Bs Antigen Negative Hep Bs Antibody NONREACTIVE Hep B Core Total Ab Nonreactive Hepatitis C Ab (EIA) Reactive H HIV 1&2 Ab/P24 Ag 4thGn Nonreactive Assessment and Plan (1) Acute opioid withdrawal: Status: Acute (2) Opioid withdrawal: Status: Acute Plan 37-year-old female with a PMH significant for?opioid and alcohol use disorder who presents to the ED with?chills, tremors, and intractable nausea and vomiting. Pt appears restless, uncomfortable, shaking at time of interview, is not the most cooperative in answering questions in detail or allowing for a full physical exam. Pt will be admitted to the hospital for treatment and further evaluation of acute opioid and alcohol withdrawal. Acute alcohol withdrawal Moderate shakiness, no hallucinations Received IVF and ondansetron in ED, Phenobarb protocol,Daily multivitamin, folic acid 1mg, Thiamine 100 mg daily,Famotidine Follow lytes, Mag, BMP CIWA scale Addiction medicine consult Opioid withdrawal Pt with long hx of IV heroin use, last used 3 days ago Pt with chills, tremors, diffuse abd pain, body aches Addiction medicine consult-adjusted methadone to 40 mg. Transaminitis Likely secondary to alcohol use disorder Patient received IVF Patient complaining of none localized diffuse abdominal pain HIVneg , hepatitisC (eia) reactive. smoker: added nicotein patch, Full Code DVT Prophylaxis: Lovenox ongoing hospitalization : for treatment of?alcohol and opioid withdrawal. Will be treated with phenobarb protocol, methadone, and close monitoring. Quality Stroke Does the patient have a stroke diagnosis?: No VTE Prior VTE?: No VTE Risk Level:: Medical - moderate - high VTE Device Contraindication: Treatment Not Indicated VTE Drug Contraindication: N/A - Med Ordered
[2023-06-26 16:15] LABS: Appearance Urine Clear; Color Urine Yellow; Glucose Urine UA 100 mg/dL (Negative); Leukocyte Esterase Urine Negative (Negative); Nitrite Urine Positive (Negative); Specific Gravity - Urine 1.015 (1.005-1.025); UMIC TRIGGER UACC YES; Urine Blood Negative (Negative); Urine Ketones Negative (Negative); Urine Protein Negative (Neg-Trace)
[2023-06-26 16:21] LABS: Amphetamine Screen Urine Not Detected (Not Detect); Barbiturates, Urine POSITIVE (Not Detect); Benzodiazepines Screen Urine Not Detected (Not Detect); Cannabinoid Screen Urine Not Detected (Not Detect); Cocaine Screen Urine POSITIVE (Not Detect); Fentanyl, urine POSITIVE (Not Detect); Opiate Screen Urine Not Detected (Not Detect); Phencyclidine Screen Urine Not Detected (Not Detect)
[2023-06-26 16:22] LABS: Bacteria Urine 4+ (None Seen); Hyaline Casts Urine 0-2 /LPF (0-2); RBC Urine 0-2 /HPF (0-2); Squamous Epithelial Cell Urine 0-2 /HPF (0-2); UACC Culture Trigger YES; WBC Urine 0-5 /HPF (0-5)
[2023-06-26] MEDS: Enoxaparin Sodium 40 MG/0.4 ML SYRINGE SUBCUT (17:11)
[2023-06-26 20:00] VITALS: BP 146/83; PULSE 57; RESP 24; TEMP 36.7; O2SAT 99
[2023-06-26] MEDS: methADONE HCl 20 MG/2 ML ORAL.CONC 10 MG PO (20:36)
[2023-06-26] MEDS: Nicotine 21 MG PATCH.TD24 TRANSDERMA (20:37)
[2023-06-26] MEDS: Melatonin 3 MG TABLET 6 MG PO (20:44)
--- NOTE | 2023-06-26 21:03 | P.PNADD_ITS ---
Subjective Subjective Date of Service: 06/26/23 Reason For Visit: Alcohol, opioid withdrawal Interim History: Patient is a 37 year old female currently medically admitted with alcohol withdrawal and opioid withdrawal Methadone 30mg administered yesterday (06/25) while in ED. Seen by teletypewriter installer this morning and appearing/reporting discomfort and ongoing withdrawal sx. Methadone 40mg ordered and administered with positive effect. Seen with teletypewriter installer later in the day, patient reporting improved sx. Starting to eat some food. Would like to continue dose titration while admitted. HAIDER hx reviewed, as most information was gathered and documented by teletypewriter installer. Patient reporting previous engagement in treatment for OUD with methadone with substantial periods of time in recovery. Denies any history of overdose She identifies alcohol as her biggest challenge at the moment. Drinking btwn 6-8 four lokos drinks daily. Unclear where she is living at the moment, but she states that when she is in treatment she is able to stay with her mother in [place]. Mental Status Exam Mental Status Exam Patient Orientation: Person, Place, Time and Situation Level of Consciousness: Awake, Appropriate and Alert Patient Behavior: Appropriate, Talkative and Cooperative Mood Description: Calm Affect Description: Calm Diagnostics Vital Signs (24Hr): Vital Signs - 24 hr 06/25/23 22:59 06/26/23 03:34 06/26/23 06:05 Temperature 98.8 F Pulse Rate 65 69 79 Respiratory Rate 19 16 Blood Pressure 140/84 H 129/69 142/80 H Pulse Oximetry 98 98 Oxygen Delivery Method Room Air Room Air 06/26/23 20:00 Temperature 98.0 F Pulse Rate 57 Respiratory Rate 24 H Blood Pressure 146/83 H Pulse Oximetry 99 Oxygen Delivery Method Room Air BMI result Body Mass Index 26.2 Labs 06/26/23 05:07 06/26/23 05:07 Labs: Laboratory Results - last 48 hr 06/25/23 06/25/23 06/26/23 12:08 17:33 05:07 WBC 6.3 7.0 RBC 5.41 D 4.66 Hgb 15.8 D 13.8 Hct 45.0 40.3 MCV 83.2 86.5 MCH 29.2 29.6 MCHC 35.1 H 34.2 RDW 13.9 14.6 Plt Count 161 167 MPV 10.5 11.0 Immature Gran % (Auto) 0.3 Neut % (Auto) 79.8 H Lymph % (Auto) 14.7 L Sac % (Auto) 5.0 Eos % (Auto) 0.0 Baso % (Auto) 0.2 Lymph # (Auto) 0.9 L Sac # (Auto) 0.3 Eos # (Auto) 0.0 Baso # (Auto) 0.0 Abs Immat Gran (auto) 0.02 Absolute Neuts (auto) 5.0 Absolute Nucleated RBC 0.000 0.000 Nucleated RBC % (auto) 0.0 0.0 Sodium 140 140 Potassium 3.2 L 3.3 Chloride 107 112 H Carbon Dioxide 22 19 L Anion Gap 14 12 BUN 6 L 5 L Creatinine 0.70 0.68 Estim Creat Clear Calc 105.1 108.2 Estimated GFR > 60 > 60 Random Glucose 132 H 165 H Calcium 9.5 8.6 D Magnesium 1.9 Total Bilirubin 2.1 H AST 91 H ALT 32 H Alkaline Phosphatase 128 H Total Creatine Kinase 649 H Troponin I High Sens 6.2 Total Protein 9.5 H Albumin 3.9 Beta HCG, Quant < 2 Urine Color Urine Appearance Urine pH Ur Specific [place] Urine Protein Urine Glucose (UA) Urine Ketones Urine Blood Urine Nitrite Ur Leukocyte Esterase Urine RBC Urine WBC Ur Squamous Epith Cells Urine Bacteria Hyaline Casts Urine Opiates Screen Urine Fentanyl Screen Ur Barbiturates Screen Ur Phencyclidine Scrn Ur Amphetamines Screen U Benzodiazepines Scrn Urine Cocaine Screen U Marijuana (THC) Screen Ethyl Alcohol < 10 Hepatitis A IgM Ab Nonreactive Hep Bs Antigen Negative Hep Bs Antibody NONREACTIVE Hep B Core Total Ab Nonreactive Hepatitis C Ab (EIA) Reactive H HIV 1&2 Ab/P24 Ag 4thGn Nonreactive 06/26/23 16:03 WBC RBC Hgb Hct MCV MCH MCHC RDW Plt Count MPV Immature Gran % (Auto) Neut % (Auto) Lymph % (Auto) Sac % (Auto) Eos % (Auto) Baso % (Auto) Lymph # (Auto) Sac # (Auto) Eos # (Auto) Baso # (Auto) Abs Immat Gran (auto) Absolute Neuts (auto) Absolute Nucleated RBC Nucleated RBC % (auto) Sodium Potassium Chloride Carbon Dioxide Anion Gap BUN Creatinine Estim Creat Clear Calc Estimated GFR Random Glucose Calcium Magnesium Total Bilirubin AST ALT Alkaline Phosphatase Total Creatine Kinase Troponin I High Sens Total Protein Albumin Beta HCG, Quant Urine Color Yellow Urine Appearance Clear Urine pH 7.0 Ur Specific [place] 1.015 Urine Protein Negative Urine Glucose (UA) 100 H Urine Ketones Negative Urine Blood Negative Urine Nitrite Positive H Ur Leukocyte Esterase Negative Urine RBC 0-2 Urine WBC 0-5 Ur Squamous Epith Cells 0-2 Urine Bacteria 4+ Hyaline Casts 0-2 Urine Opiates Screen Not Detected Urine Fentanyl Screen POSITIVE H Ur Barbiturates Screen POSITIVE H Ur Phencyclidine Scrn Not Detected Ur Amphetamines Screen Not Detected U Benzodiazepines Scrn Not Detected Urine Cocaine Screen POSITIVE H U Marijuana (THC) Screen Not Detected Ethyl Alcohol Hepatitis A IgM Ab Hep Bs Antigen Hep Bs Antibody Hep B Core Total Ab Hepatitis C Ab (EIA) HIV 1&2 Ab/P24 Ag 4thGn Imaging Radiology Impressions: ITS Impressions Chest X-Ray 06/25/23 12:28 IMPRESSION: No focal pneumonia or alveolar edema Medications Medications Current Medications Acetaminophen (Acetaminophen 325 Mg Tablet) 650 mg PO Q6H PRN PRN Reason: Pain, Mild (Pain Scale 1-3) Benzonatate (Benzonatate 100 Mg Capsule) 100 mg PO TID PRN PRN Reason: Cough Cyclobenzaprine HCl (Cyclobenzaprine Hcl 5 Mg Tablet) 5 mg PO TID PRN PRN Reason: Muscle Spasm Last Admin: 06/26/23 13:23 Dose: 5 mg Docusate Sodium (Docusate Sodium 100 Mg Capsule) 100 mg PO DAILY PRN PRN Reason: Constipation Enoxaparin Sodium (Enoxaparin Sodium 40 Mg/0.4 Ml Syringe) 40 mg SUBCUT Q24H [facility] Last Admin: 06/26/23 17:11 Dose: 40 mg Famotidine (Famotidine 20 Mg Tablet) 20 mg PO BID@0630,1630 [facility] Last Admin: 06/26/23 17:11 Dose: 20 mg Folic Acid (Folic Acid 1 Mg Tablet) 1 mg PO DAILY [facility] Stop: 06/28/23 16:49 Last Admin: 06/26/23 09:54 Dose: 1 mg Lactated Ringer's (Lr) 1,000 mls @ 100 mls/hr IVCONT .Q10H [facility] Last Admin: 06/26/23 13:18 Dose: 100 mls/hr Melatonin (Melatonin 3 Mg Tablet) 6 mg PO BEDTIME PRN PRN Reason: Insomnia Last Admin: 06/26/23 20:44 Dose: 6 mg Methadone HCl (Methadone Hcl 20 Mg/2 Ml Oral.Conc) 55 mg PO DAILY [facility] Multivitamins/Vitamin C (Multivitamin Tablet) 1 tab PO DAILY [facility] Stop: 06/28/23 16:49 Last Admin: 06/26/23 09:54 Dose: 1 tab Nicotine (Nicotine 21 Mg Patch.Td24) 21 mg TRANSDERMA DAILY [facility] Last Admin: 06/26/23 20:37 Dose: 21 mg Nicotine Polacrilex (Nicotine Polacrilex 2 Mg Gum) 2 mg BUCCAL Q2H PRN PRN Reason: Nicotine Cravings Ondansetron HCl (Ondansetron Hcl 4 Mg/2 Ml Vial) 4 mg IVPUSH Q8H PRN PRN Reason: Nausea and Vomiting Pharmacy Consult (Consult Rx Etoh Phenob Im/Po) 1 each MISCELLANE ONCE PRN; Protocol PRN Reason: Consult order Phenobarbital (Phenobarbital 15 Mg Tablet) 45 mg PO BID [facility]; Protocol Stop: 06/27/23 21:01 Last Admin: 06/26/23 20:34 Dose: 45 mg Phenobarbital (Phenobarbital 15 Mg Tablet) 15 mg PO BID [facility]; Protocol Stop: 06/29/23 21:01 Phenobarbital (Phenobarbital 15 Mg Tablet) 15 mg PO DAILY [facility]; Protocol Stop: 07/01/23 09:01 Sodium Chloride (0.9 % Sodium Chloride Flush 3 Ml Syringe) 3 ml IVFLUSH QSHIFT [facility] Last Admin: 06/26/23 16:49 Dose: Not Given Thiamine HCl (Thiamine Hcl 100 Mg Tablet) 100 mg PO DAILY [facility] Stop: 06/28/23 16:49 Last Admin: 06/26/23 09:54 Dose: 100 mg Allergies Allergies Allergy/AdvReac Type Severity Reaction Status Date / Time amoxicillin [From Augmentin] Allergy Unknown Swelling Verified 06/25/23 11:57 clavulanic acid Allergy Unknown Swelling Verified 06/25/23 11:57 [From Augmentin] From AUGMENTIN Allergy Severe SWELLING Uncoded 06/25/23 11:57 From Augmentin Allergy Severe SWELLING Uncoded 06/25/23 11:57 Assessment & Plan Assessment & Plan (1) Opioid withdrawal: Status: Acute Code(s): F11.93 - Opioid use, unspecified with withdrawal Assessment and Plan: * additional 10mg methadone added to evening * methadone 55mg in AM * teletypewriter installer to coordinate referral based on where patient wants to go (2) Alcohol withdrawal: Status: Acute Code(s): F10.939 - Alcohol use, unspecified with withdrawal, unspecified Assessment and Plan: * phenobarb protocol in place * ?ahrsh prior to d/c * will continue to follow Total time managing care of this patient today 35____ minutes.
[2023-06-26] MEDS: 0.9 % Sodium Chloride Flush 3 ML SYRINGE IVFLUSH (23:56)
[2023-06-27] VITALS (7 sets, daily range): BP systolic 121–154; BP diastolic 63–87; PULSE 58–75; RESP 16–20; TEMP 36.1–37; O2SAT 95–100
[2023-06-27] MEDS: PHENobarbitaL sodium 130 MG/ML VIAL 260 MG IM (00:44)
[2023-06-27] MEDS: Nicotine Polacrilex 2 MG GUM BUCCAL ×4 (01:57→22:16)
[2023-06-27] MEDS: Famotidine 20 MG TABLET PO ×2 (06:18→16:27)
[2023-06-27 07:26] LABS: Anion Gap 9 (12-20); Blood Urea Nitrogen 4 mg/dL (9-16); Calcium 8.3 mg/dL (8.4-10.2); Carbon Dioxide 24 mmol/L (22-29); Chloride 108 mmol/L (96-108); Creatinine Clr Calc Pharmacy 124.7; Estimated Glomerular Filt Rate > 60; Glucose Random 130 mg/dL (60-115); Magnesium 1.7 mg/dL (1.6-2.6); Sodium 138 mmol/L (135-145)
[2023-06-27 07:51] LABS: Alanine Aminotransferase 26 U/L (0-31); Albumin Level 2.9 g/dL (3.5-5.0); Alkaline Phosphatase 100 U/L (39-117); Aspartate Amino Transferase 51 U/L (5-31); Bilirubin Direct 0.6 mg/dL (0.0-0.5); Bilirubin Total 1.2 mg/dL (0.0-1.0); Total Protein 6.9 g/dL (6.5-8.0)
--- NOTE | 2023-06-27 08:35 | MHC.CM.PN ---
CM attempted to meet with Patient at bedside but she did not respond to several attempts to call her name. CM spoke with Patient's Mother at [phone] who has not spoken with Patient for a long time and was unable to provide much information. Patient has an address listed but Patient's Mother thought she was homeless and also that she does not believe Patient has a PCP. DC planning will be heavily dependent on Recovery Team input(ETOH & OPIOIDS). CM has initiated and will follow for dc planning. A referral was sent to [facility]; Patient is listed as self pay.
[2023-06-27] MEDS: Thiamine HCL 100 MG TABLET PO (09:51)
[2023-06-27] MEDS: Folic Acid 1 MG TABLET PO (09:51)
[2023-06-27] MEDS: methADONE HCl 20 MG/2 ML ORAL.CONC 55 MG PO (09:51)
[2023-06-27] MEDS: Multivitamin TABLET 1 TAB PO (09:51)
[2023-06-27] MEDS: PHENobarbitaL 15 MG TABLET 45 MG PO ×2 (09:51→21:12)
[2023-06-27] MEDS: Nicotine 21 MG PATCH.TD24 TRANSDERMA (09:52)
[2023-06-27] MEDS: Cyclobenzaprine HCl 5 MG TABLET PO ×3 (09:59→22:15)
[2023-06-27] MEDS: Lactated Ringers 1,000 ML 100 ML IVCONT ×2 (09:59→21:24)
[2023-06-27] MEDS: levoFLOXacin 250 MG TABLET PO (10:23)
[2023-06-27] MEDS: 0.9 % Sodium Chloride Flush 3 ML SYRINGE IVFLUSH ×3 (10:23→21:25)
--- NOTE | 2023-06-27 12:37 | MHC.RECOVRN ---
Met with pt this morning prior to methadone dose. Pt awake, alert, easily engages in conversation. Pt reports feeling better, however, continues to experience withdrawal symptoms including body aches, hot/cold flashes. Pt would like to continue methadone titration. Pt would like to be connected to [facility] prior to discharge. Pt reports cellulitis in leg that comes and goes. Pt did speak with provider about her concerns. Pt denies other questions or concerns for t/w. Discussed with Starr Regalado APRN.
--- NOTE | 2023-06-27 14:55 | MHC.RECOVRN ---
Pts referral sent to [facility].
--- NOTE | 2023-06-27 15:49 | MHC.RECOVRN ---
Pts referral sent to the following [facility] facilities-[facility] ([facility]), [facility], [facility], [facility], [facility], [place], and [facility].
[2023-06-27] MEDS: Enoxaparin Sodium 40 MG/0.4 ML SYRINGE SUBCUT (16:27)
[2023-06-27] MEDS: Melatonin 3 MG TABLET 6 MG PO (22:14)
[2023-06-28] MEDS: traZODone HCL 50 MG TABLET PO ×2 (01:38→20:39)
[2023-06-28 03:48] VITALS: BP 123/68; PULSE 61; RESP 18; TEMP 36.6; O2SAT 96
[2023-06-28] MEDS: Famotidine 20 MG TABLET PO ×2 (05:43→16:59)
[2023-06-28 07:08] VITALS: BP 112/76; PULSE 76; RESP 18; TEMP 36.7; O2SAT 99
[2023-06-28] MEDS: Cyclobenzaprine HCl 5 MG TABLET PO ×2 (08:01→16:56)
[2023-06-28] MEDS: Folic Acid 1 MG TABLET PO (08:01)
[2023-06-28] MEDS: Multivitamin TABLET 1 TAB PO (08:01)
[2023-06-28] MEDS: Docusate Sodium 100 MG CAPSULE PO (08:01)
[2023-06-28] MEDS: Nicotine 21 MG PATCH.TD24 TRANSDERMA (08:01)
[2023-06-28] MEDS: Thiamine HCL 100 MG TABLET PO (08:01)
[2023-06-28] MEDS: PHENobarbitaL 15 MG TABLET PO ×2 (08:02→20:39)
[2023-06-28] MEDS: methADONE HCl 20 MG/2 ML ORAL.CONC 65 MG PO (08:03)
[2023-06-28] MEDS: Nicotine Polacrilex 2 MG GUM BUCCAL ×4 (08:26→21:11)
[2023-06-28 08:27] LABS: Anion Gap 10 (12-20); Blood Urea Nitrogen 6 mg/dL (9-16); Calcium 8.3 mg/dL (8.4-10.2); Carbon Dioxide 24 mmol/L (22-29); Chloride 108 mmol/L (96-108); Creatinine Clr Calc Pharmacy 122.7; Estimated Glomerular Filt Rate > 60; Glucose Random 120 mg/dL (60-115); Magnesium 1.9 mg/dL (1.6-2.6); Sodium 139 mmol/L (135-145)
[2023-06-28 08:31] LABS: Alanine Aminotransferase 26 U/L (0-31); Albumin Level 2.6 g/dL (3.5-5.0); Alkaline Phosphatase 90 U/L (39-117); Aspartate Amino Transferase 47 U/L (5-31); Bilirubin Direct 0.4 mg/dL (0.0-0.5); Bilirubin Total 0.7 mg/dL (0.0-1.0); Total Protein 6.3 g/dL (6.5-8.0)
--- NOTE | 2023-06-28 10:14 | MHC.CM.PN ---
Per ROUNDS discussion, Patient is still presenting with s/s of withdrawal and is not yet medically cleared for dc. CM will follow.
--- NOTE | 2023-06-28 11:09 | MHC.RECOVRN ---
Received Explanation of Program from [facility], form signed by pt and returned to Michelle Resendiz, gis coordinator. Pts insurance must be active prior to pt being accepted to [facility], awaiting verification from [facility] that it is active. Pts referral for [facility] bed pending review.
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
[2023-06-28] MEDS: levoFLOXacin 250 MG TABLET PO (11:21)
[2023-06-28 11:22] VITALS: BP 134/75; PULSE 75; RESP 20; TEMP 36.7; O2SAT 97
[2023-06-28] MEDS: PHENobarbitaL 30 MG TABLET 60 MG PO (13:17)
[2023-06-28 15:27] VITALS: BP 125/76; PULSE 74; RESP 20; TEMP 37.1; O2SAT 97
[2023-06-28] MEDS: Enoxaparin Sodium 40 MG/0.4 ML SYRINGE SUBCUT (16:56)
[2023-06-28] MEDS: 0.9 % Sodium Chloride Flush 3 ML SYRINGE IVFLUSH ×2 (16:59→20:40)
[2023-06-28 19:44] VITALS: BP 108/74; PULSE 70; RESP 14; TEMP 37.5; O2SAT 98
[2023-06-28 23:18] VITALS: BP 141/64; PULSE 77; RESP 16; TEMP 36.2; O2SAT 97
--- NOTE | 2023-06-29 | ECG_ITS ---
Test Reason : methadone titration Blood Pressure : / mmHG Vent. Rate : 070 BPM Atrial Rate : 070 BPM P-R Int : 142 ms QRS Dur : 084 ms QT Int : 468 ms P-R-T Axes : 040 -03 030 degrees QTc Int : 505 ms Normal sinus rhythm Minimal voltage criteria for LVH, may be normal variant ( R in aVL ) Prolonged QT Abnormal ECG No previous ECGs available Referred By: Starr Regalado Electronically Signed By:DOMINICK CAREY
[2023-06-29] MEDS: Cyclobenzaprine HCl 5 MG TABLET PO ×2 (02:16→09:33)
[2023-06-29] MEDS: Melatonin 3 MG TABLET 6 MG PO (02:16)
[2023-06-29 03:40] VITALS: BP 124/57; PULSE 77; RESP 14; TEMP 36.6; O2SAT 98
[2023-06-29] MEDS: Famotidine 20 MG TABLET PO ×2 (06:32→16:09)
[2023-06-29 07:09] LABS: Anion Gap 10 (12-20); Blood Urea Nitrogen 6 mg/dL (9-16); Calcium 8.5 mg/dL (8.4-10.2); Carbon Dioxide 27 mmol/L (22-29); Chloride 107 mmol/L (96-108); Creatinine Clr Calc Pharmacy 122.7; Estimated Glomerular Filt Rate > 60; Glucose Fasting 114 mg/dL (60-99); Potassium 3.7 mmol/L (3.3-5.1); Sodium 140 mmol/L (135-145)
[2023-06-29 07:12] LABS: Hematocrit 34.5 % (37.0-47.0); Hemoglobin 11.7 g/dl (12.0-16.0); Mean Corpuscular HGB Conc 33.9 g/dl (31.0-35.0); Mean Corpuscular Hemoglobin 29.6 pg (27.0-33.0); Mean Corpuscular Volume 87.3 fL (80.0-98.0); Mean Platelet Volume 11.5 fL (9.4-12.3); Platelet Count 105 X10*3/uL (160-400); Red Blood Count 3.95 X10*6/uL (4.20-5.50); Red Cell Distribution Width 14.9 % (11.0-16.0); White Blood Count 3.1 X10*3/uL (4.8-10.8)
[2023-06-29 07:32] VITALS: BP 110/53; PULSE 71; RESP 18; TEMP 36.4; O2SAT 96
[2023-06-29] MEDS: Nicotine 21 MG PATCH.TD24 TRANSDERMA (09:32)
[2023-06-29] MEDS: methADONE HCl 20 MG/2 ML ORAL.CONC 65 MG PO (09:32)
[2023-06-29] MEDS: 0.9 % Sodium Chloride Flush 3 ML SYRINGE IVFLUSH (09:32)
[2023-06-29] MEDS: levoFLOXacin 250 MG TABLET PO (09:33)
[2023-06-29] MEDS: PHENobarbitaL 15 MG TABLET PO ×2 (09:33→21:23)
[2023-06-29] MEDS: Docusate Sodium 100 MG CAPSULE PO (09:39)
[2023-06-29] MEDS: Nicotine Polacrilex 2 MG GUM BUCCAL ×4 (09:39→23:33)
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
--- NOTE | 2023-06-29 11:16 | MHC.RECOVRN ---
Met with pt in 446 to follow up and provide support. Pt laying in bed, eyes closed, easily wakes to voice. Pt reports withdrawal symptoms including body aches, restlessness, hot/cold flashes. Denies n/v, loose stool. Pt interested in methadone increase. Pt also requesting comfort medications, feels anxiety is returning as phenobarbital is tapering. Pt continues to express interest in [facility], pt informed N is following. Pt denies other questions or concerns for t/w. Discussed with Starr Regalado APRN.
[2023-06-29 11:20] VITALS: BP 112/70; PULSE 73; RESP 18; TEMP 37.3; O2SAT 97
[2023-06-29 15:21] VITALS: BP 99/70; PULSE 74; RESP 18; TEMP 36.4; O2SAT 96
[2023-06-29] MEDS: hydrOXYzine HCL 25 MG TABLET PO ×2 (16:09→23:04)
[2023-06-29] MEDS: Enoxaparin Sodium 40 MG/0.4 ML SYRINGE SUBCUT (16:10)
--- NOTE | 2023-06-29 18:58 | P.PNADD_ITS ---
Subjective Subjective Date of Service: 06/29/23 Reason For Visit: Alcohol, opioid withdrawal Interim History: patient seen in follow up awake, alert, engaged in interview. reporting ongoing withdrawal sx, including restless legs and some joint pain Also requesting comfort medications to address anxiety--has had success with hydroxyzine in the past. Requesting clonidine--however BP has been on the lower side and not appropriate. Mental Status Exam Mental Status Exam Level of Consciousness: Awake, Appropriate and Alert Diagnostics Vital Signs (24Hr): Vital Signs - 24 hr 06/28/23 19:44 06/28/23 23:18 06/29/23 03:40 Temperature 99.5 F 97.2 F 97.9 F Pulse Rate 70 77 77 Respiratory Rate 14 16 14 Blood Pressure 108/74 141/64 H 124/57 L Pulse Oximetry 98 97 98 Oxygen Delivery Method Room Air Room Air Room Air 06/29/23 07:32 06/29/23 11:20 06/29/23 15:21 Temperature 97.6 F 99.1 F 97.5 F Pulse Rate 71 73 74 Respiratory Rate 18 18 18 Blood Pressure 110/53 L 112/70 99/70 Pulse Oximetry 96 97 96 Oxygen Delivery Method Room Air Room Air Room Air BMI result Body Mass Index 26.2 Labs 06/29/23 06:34 06/29/23 06:34 Labs: Laboratory Results - last 48 hr 06/28/23 06/29/23 07:03 06:34 WBC 3.1 L RBC 3.95 L Hgb 11.7 L Hct 34.5 L MCV 87.3 MCH 29.6 MCHC 33.9 RDW 14.9 Plt Count 105 L D MPV 11.5 Absolute Nucleated RBC 0.000 Nucleated RBC % (auto) 0.0 Hold Purple Top SEE NOTE Sodium 139 140 Potassium 3.0 L 3.7 D Chloride 108 107 Carbon Dioxide 24 27 Anion Gap 10 L 10 L BUN 6 L 6 L Creatinine 0.60 0.60 Estim Creat Clear Calc 122.7 122.7 Estimated GFR > 60 > 60 Random Glucose 120 H Fasting Glucose 114 H Calcium 8.3 L 8.5 Magnesium 1.9 Total Bilirubin 0.7 Direct Bilirubin 0.4 AST 47 H ALT 26 Alkaline Phosphatase 90 Total Protein 6.3 L Albumin 2.6 L Imaging Radiology Impressions: ITS Impressions Chest X-Ray 06/25/23 12:28 IMPRESSION: No focal pneumonia or alveolar edema Medications Medications Current Medications Acetaminophen (Acetaminophen 325 Mg Tablet) 650 mg PO Q6H PRN PRN Reason: Pain, Mild (Pain Scale 1-3) Benzonatate (Benzonatate 100 Mg Capsule) 100 mg PO TID PRN PRN Reason: Cough Cyclobenzaprine HCl (Cyclobenzaprine Hcl 5 Mg Tablet) 5 mg PO TID PRN PRN Reason: Muscle Spasm Last Admin: 06/29/23 09:33 Dose: 5 mg Docusate Sodium (Docusate Sodium 100 Mg Capsule) 100 mg PO DAILY PRN PRN Reason: Constipation Last Admin: 06/29/23 09:39 Dose: 100 mg Enoxaparin Sodium (Enoxaparin Sodium 40 Mg/0.4 Ml Syringe) 40 mg SUBCUT Q24H [facility] Last Admin: 06/29/23 16:10 Dose: 40 mg Famotidine (Famotidine 20 Mg Tablet) 20 mg PO BID@0630,1630 [facility] Last Admin: 06/29/23 16:09 Dose: 20 mg Levofloxacin (Levofloxacin 250 Mg Tablet) 250 mg PO Q24H [facility] Last Admin: 06/29/23 09:33 Dose: 250 mg Melatonin (Melatonin 3 Mg Tablet) 6 mg PO BEDTIME PRN PRN Reason: Insomnia Last Admin: 06/29/23 02:16 Dose: 6 mg Methadone HCl (Methadone Hcl 20 Mg/2 Ml Oral.Conc) 65 mg PO DAILY [facility] Nicotine (Nicotine 21 Mg Patch.Td24) 21 mg TRANSDERMA DAILY [facility] Last Admin: 06/29/23 09:32 Dose: 21 mg Nicotine Polacrilex (Nicotine Polacrilex 2 Mg Gum) 2 mg BUCCAL Q2H PRN PRN Reason: Nicotine Cravings Last Admin: 06/29/23 14:57 Dose: 2 mg Ondansetron HCl (Ondansetron Hcl 4 Mg/2 Ml Vial) 4 mg IVPUSH Q8H PRN PRN Reason: Nausea and Vomiting Pharmacy Consult (Consult Rx Etoh Phenob Im/Po) 1 each MISCELLANE ONCE PRN; Protocol PRN Reason: Consult order Phenobarbital (Phenobarbital 15 Mg Tablet) 15 mg PO BID [facility]; Protocol Stop: 06/29/23 21:01 Last Admin: 06/29/23 09:33 Dose: 15 mg Phenobarbital (Phenobarbital 15 Mg Tablet) 15 mg PO DAILY [facility]; Protocol Stop: 07/01/23 09:01 Sodium Chloride (0.9 % Sodium Chloride Flush 3 Ml Syringe) 3 ml IVFLUSH QSHIFT [facility] Last Admin: 06/29/23 18:38 Dose: Not Given Trazodone HCl (Trazodone Hcl 50 Mg Tablet) 50 mg PO BEDTIME [facility] Last Admin: 06/28/23 20:39 Dose: 50 mg Allergies Allergies Allergy/AdvReac Type Severity Reaction Status Date / Time amoxicillin [From Augmentin] Allergy Unknown Swelling Verified 06/25/23 11:57 clavulanic acid Allergy Unknown Swelling Verified 06/25/23 11:57 [From Augmentin] From AUGMENTIN Allergy Severe SWELLING Uncoded 06/25/23 11:57 From Augmentin Allergy Severe SWELLING Uncoded 06/25/23 11:57 Assessment & Plan Assessment & Plan (1) Opioid use disorder: Status: Acute Code(s): F11.90 - Opioid use, unspecified, uncomplicated Assessment and Plan: * plan was to increase methadone to 70mg in AM however EKG ordered and shows prolonged QTc, so will hold on increasing dose any further * hydroxyzine on hold for now--magnesium and potassium wnl. Total time managing care of this patient today __30__ minutes.
[2023-06-29 19:35] VITALS: BP 126/66; PULSE 78; RESP 18; TEMP 36.3; O2SAT 97
--- NOTE | 2023-06-29 21:24 | PC.NURSE ---
Pt seen for 2100 med pass.Pt requseting hydorxyzine and methadone, as she was told her methadone dose would be increased tonight. Explained to pt that Starr Regalado CNP wrote in her report that pt's methadone would not be increased due to prolonged QTc. Pt educated on importance of holding medications that can prolong QTc. Reinforcement needed, as pt not comprehending. Pt threated to leave AMA and run to the liquor store to prevent getting sick. Pt stated she was getting increasingly agitated and told this RN she was never informed her hydroxyzine would be discontinued and/or her methadone would not be increased. aware. CATRINA Vega, who is currently assigned to caring for pt, made aware. Plan of care ongoing.
[2023-06-29 23:24] VITALS: BP 122/72; PULSE 90; RESP 18; TEMP 36.6; O2SAT 96
[2023-06-29] MEDS: traZODone HCL 50 MG TABLET PO (23:33)
--- NOTE | 2023-06-30 | ECG_ITS ---
Test Reason : prolonged qt Blood Pressure : / mmHG Vent. Rate : 070 BPM Atrial Rate : 070 BPM P-R Int : 144 ms QRS Dur : 082 ms QT Int : 452 ms P-R-T Axes : 039 -05 039 degrees QTc Int : 488 ms Normal sinus rhythm Minimal voltage criteria for LVH, may be normal variant ( R in aVL ) Prolonged QT Abnormal ECG When compared with ECG of 29-JUN-2023 17:24, No significant change was found Referred By: Starr Regalado Electronically Signed By:DOMINICK CAREY
[2023-06-30 04:00] VITALS: BP 120/72; PULSE 90; RESP 18; TEMP 36.4; O2SAT 96
[2023-06-30 08:00] VITALS: BP 141/67; PULSE 83; RESP 16; TEMP 36.1; O2SAT 92
[2023-06-30] MEDS: PHENobarbitaL 15 MG TABLET PO (09:15)
[2023-06-30] MEDS: Nicotine 21 MG PATCH.TD24 TRANSDERMA (09:15)
[2023-06-30] MEDS: methADONE HCl 20 MG/2 ML ORAL.CONC 65 MG PO (09:15)
[2023-06-30] MEDS: levoFLOXacin 250 MG TABLET PO (09:16)
[2023-06-30] MEDS: Famotidine 20 MG TABLET PO ×2 (09:16→17:21)
[2023-06-30] MEDS: 0.9 % Sodium Chloride Flush 3 ML SYRINGE IVFLUSH ×3 (09:16→21:55)
[2023-06-30] MEDS: Nicotine Polacrilex 2 MG GUM BUCCAL ×4 (09:22→22:10)
--- NOTE | 2023-06-30 10:09 | MHC.CM.PN ---
Recovery Team is working with Patient; [facility] are following and may have a bed for Patient tomorrow. CM will follow.
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
--- NOTE | 2023-06-30 10:48 | P.PNADD_ITS ---
Subjective Subjective Date of Service: 06/30/23 Reason For Visit: Alcohol, opioid withdrawal Interim History: Checked in with patient and reviewed EKG finsings and why increase in methadone was put on hold. Patient verbalized understanding . Discussed with attending regarding Levaquin, and how many doses were still needed as this combo may be reason for QT prolongation. He reported Levaquin would be d/c. Follow up EKG ordered and WNL Review of Systems Constitutional: Reports as per HPI and Reports no additional constitutional complaints Mental Status Exam Mental Status Exam Patient Appearance: Well Grooomed and Appropriate Level of Consciousness: Awake, Appropriate and Alert Diagnostics Vital Signs (24Hr): Vital Signs - 24 hr 06/29/23 11:20 06/29/23 15:21 06/29/23 19:35 Temperature 99.1 F 97.5 F 97.4 F Pulse Rate 73 74 78 Respiratory Rate 18 18 18 Blood Pressure 112/70 99/70 126/66 Pulse Oximetry 97 96 97 Oxygen Delivery Method Room Air Room Air Room Air 06/29/23 23:24 06/30/23 04:00 06/30/23 08:00 Temperature 97.8 F 97.6 F 97.0 F Pulse Rate 90 90 83 Respiratory Rate 18 18 16 Blood Pressure 122/72 120/72 141/67 H Pulse Oximetry 96 96 92 Oxygen Delivery Method Room Air Room Air Room Air BMI result Body Mass Index 26.2 Labs 06/29/23 06:34 06/29/23 06:34 Labs: Laboratory Results - last 48 hr 06/29/23 06:34 WBC 3.1 L RBC 3.95 L Hgb 11.7 L Hct 34.5 L MCV 87.3 MCH 29.6 MCHC 33.9 RDW 14.9 Plt Count 105 L D MPV 11.5 Absolute Nucleated RBC 0.000 Nucleated RBC % (auto) 0.0 Sodium 140 Potassium 3.7 D Chloride 107 Carbon Dioxide 27 Anion Gap 10 L BUN 6 L Creatinine 0.60 Estim Creat Clear Calc 122.7 Estimated GFR > 60 Fasting Glucose 114 H Calcium 8.5 Imaging Radiology Impressions: ITS Impressions Chest X-Ray 06/25/23 12:28 IMPRESSION: No focal pneumonia or alveolar edema Medications Medications Current Medications Acetaminophen (Acetaminophen 325 Mg Tablet) 650 mg PO Q6H PRN PRN Reason: Pain, Mild (Pain Scale 1-3) Benzonatate (Benzonatate 100 Mg Capsule) 100 mg PO TID PRN PRN Reason: Cough Cyclobenzaprine HCl (Cyclobenzaprine Hcl 5 Mg Tablet) 5 mg PO TID PRN PRN Reason: Muscle Spasm Last Admin: 06/29/23 09:33 Dose: 5 mg Docusate Sodium (Docusate Sodium 100 Mg Capsule) 100 mg PO DAILY PRN PRN Reason: Constipation Last Admin: 06/29/23 09:39 Dose: 100 mg Enoxaparin Sodium (Enoxaparin Sodium 40 Mg/0.4 Ml Syringe) 40 mg SUBCUT Q24H [facility] Last Admin: 06/29/23 16:10 Dose: 40 mg Famotidine (Famotidine 20 Mg Tablet) 20 mg PO BID@0630,1630 [facility] Last Admin: 06/30/23 09:16 Dose: 20 mg Levofloxacin (Levofloxacin 250 Mg Tablet) 250 mg PO Q24H [facility] Last Admin: 06/30/23 09:16 Dose: 250 mg Melatonin (Melatonin 3 Mg Tablet) 6 mg PO BEDTIME PRN PRN Reason: Insomnia Last Admin: 06/29/23 02:16 Dose: 6 mg Methadone HCl (Methadone Hcl 20 Mg/2 Ml Oral.Conc) 65 mg PO DAILY [facility] Last Admin: 06/30/23 09:15 Dose: 65 mg Nicotine (Nicotine 21 Mg Patch.Td24) 21 mg TRANSDERMA DAILY [facility] Last Admin: 06/30/23 09:15 Dose: 21 mg Nicotine Polacrilex (Nicotine Polacrilex 2 Mg Gum) 2 mg BUCCAL Q2H PRN PRN Reason: Nicotine Cravings Last Admin: 06/30/23 09:22 Dose: 2 mg Ondansetron HCl (Ondansetron Hcl 4 Mg/2 Ml Vial) 4 mg IVPUSH Q8H PRN PRN Reason: Nausea and Vomiting Pharmacy Consult (Consult Rx Etoh Phenob Im/Po) 1 each MISCELLANE ONCE PRN; Protocol PRN Reason: Consult order Phenobarbital (Phenobarbital 15 Mg Tablet) 15 mg PO DAILY [facility]; Protocol Stop: 07/01/23 09:01 Last Admin: 06/30/23 09:15 Dose: 15 mg Sodium Chloride (0.9 % Sodium Chloride Flush 3 Ml Syringe) [facility] Last Admin: 06/30/23 09:16 Dose: 3 ml Trazodone HCl (Trazodone Hcl 50 Mg Tablet) 50 mg PO BEDTIME [facility] Last Admin: 06/29/23 23:33 Dose: 50 mg Allergies Allergies Allergy/AdvReac Type Severity Reaction Status Date / Time amoxicillin [From Augmentin] Allergy Unknown Swelling Verified 06/25/23 11:57 clavulanic acid Allergy Unknown Swelling Verified 06/25/23 11:57 [From Augmentin] From AUGMENTIN Allergy Severe SWELLING Uncoded 06/25/23 11:57 From Augmentin Allergy Severe SWELLING Uncoded 06/25/23 11:57 Assessment & Plan Assessment & Plan (1) Opioid use disorder: Status: Acute Code(s): F11.90 - Opioid use, unspecified, uncomplicated Assessment and Plan: * methadone dose increased to 70mg in AM * special inspector has been in contact with [facility] facility regarding admission for next week once patient has completed phenobarb protocol Total time managing care of this patient today ____ minutes.
[2023-06-30 11:40] VITALS: BP 104/55; PULSE 73; RESP 20; TEMP 36.1; O2SAT 97
[2023-06-30] MEDS: Cyclobenzaprine HCl 5 MG TABLET PO ×2 (13:09→21:53)
[2023-06-30] MEDS: Docusate Sodium 100 MG CAPSULE PO (13:09)
[2023-06-30 16:00] VITALS: BP 119/82; PULSE 74; RESP 20; TEMP 36.4; O2SAT 99
[2023-06-30] MEDS: Enoxaparin Sodium 40 MG/0.4 ML SYRINGE SUBCUT (17:21)
[2023-06-30 20:00] VITALS: BP 126/63; PULSE 72; RESP 18; TEMP 36.4; O2SAT 97
[2023-06-30] MEDS: Melatonin 3 MG TABLET 6 MG PO (21:53)
[2023-06-30] MEDS: traZODone HCL 50 MG TABLET PO (21:54)
[2023-06-30 23:52] VITALS: BP 113/61; PULSE 78; RESP 18; TEMP 36.6; O2SAT 98
[2023-07-01 03:34] VITALS: BP 119/55; PULSE 67; RESP 18; TEMP 36.4; O2SAT 98
[2023-07-01] MEDS: Famotidine 20 MG TABLET PO ×2 (06:47→17:37)
[2023-07-01 07:44] VITALS: BP 114/58; PULSE 68; RESP 20; TEMP 36.3; O2SAT 98
[2023-07-01] MEDS: PHENobarbitaL 15 MG TABLET PO (09:12)
[2023-07-01] MEDS: Nicotine 21 MG PATCH.TD24 TRANSDERMA (09:12)
[2023-07-01] MEDS: methADONE HCl 20 MG/2 ML ORAL.CONC 70 MG PO (09:13)
[2023-07-01] MEDS: Docusate Sodium 100 MG CAPSULE PO (09:13)
[2023-07-01] MEDS: Nicotine Polacrilex 2 MG GUM BUCCAL ×4 (09:13→22:03)
[2023-07-01] MEDS: 0.9 % Sodium Chloride Flush 3 ML SYRINGE IVFLUSH ×2 (09:18→17:39)
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
[2023-07-01 11:08] VITALS: BP 107/58; PULSE 78; RESP 16; TEMP 35.9; O2SAT 98
[2023-07-01] MEDS: Cyclobenzaprine HCl 5 MG TABLET PO ×2 (12:09→22:03)
--- NOTE | 2023-07-01 12:34 | MHC.RECOVRN ---
RN met with patient in room 446-1 to check in. She is resting w/TV on. Patient states she received Methadone 70mg PO this AM, but feels she may need an increase. Reports feeling anxious, generalized body aches, restless, stomach cramping, and hot/cold sweats. Patient stated I know I couldn't have it increased before because my EKG, but I was told it's better now so I think I need a higher dose. Patient mentioned her 2 nephews needing up to 95mg to be completely off the stuff . RN explained tolerance can be different for everyone. Verbalized understanding. She received last dose of Phenobarbital protocol today, but requests to continue as she feels the creepy crawlies and headache with light sensitivity. CIWA scales have been 0. Spoke with floor RN assigned to patient about this. Discussed w/Starr Regalado APRN. Will hold off on increasing Methadone today as dose was increased to 70mg this AM.
[2023-07-01 15:30] VITALS: BP 117/73; PULSE 83; RESP 16; TEMP 36.7; O2SAT 98
[2023-07-01] MEDS: Enoxaparin Sodium 40 MG/0.4 ML SYRINGE SUBCUT (17:37)
[2023-07-01 18:57] VITALS: BP 130/87; PULSE 104; RESP 16; TEMP 36.1; O2SAT 97
[2023-07-01] MEDS: traZODone HCL 50 MG TABLET PO (22:03)
[2023-07-01] MEDS: Melatonin 3 MG TABLET 6 MG PO (22:03)
[2023-07-02] VITALS (7 sets, daily range): BP systolic 104–124; BP diastolic 52–69; PULSE 60–80; RESP 18–20; TEMP 36.1–36.6; O2SAT 97–98
[2023-07-02] MEDS: Famotidine 20 MG TABLET PO ×2 (06:33→16:55)
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
[2023-07-02] MEDS: methADONE HCl 20 MG/2 ML ORAL.CONC 75 MG PO (10:37)
[2023-07-02] MEDS: Nicotine 21 MG PATCH.TD24 TRANSDERMA (10:38)
[2023-07-02] MEDS: Nicotine Polacrilex 2 MG GUM BUCCAL ×2 (10:38→16:58)
[2023-07-02] MEDS: 0.9 % Sodium Chloride Flush 3 ML SYRINGE IVFLUSH ×3 (10:38→20:44)
[2023-07-02] MEDS: Cyclobenzaprine HCl 5 MG TABLET PO ×2 (10:45→16:55)
--- NOTE | 2023-07-02 13:28 | MHC.RECOVRN ---
RN met with patient at bedside in room 446. Boyfriend is visiting- they are both smiling/laughing, and joking. She appears to be in good spirits. She reports she is feeling OK at the moment- however does feel anxious. She reports current Methadone dose 75mg ?isn?t lasting?- wears off around 5-6pm if she gets it at 8am. Once it wears off, she reports restlessness, increased, anxiety, sweating, goosebumps, yawning, watery eyes, and cramping. CIWA had been 0, however was at 3 this AM. She wants the floor nurse to ask the hospitalist for: more phenobarbital or Ativan, Ambien or double the dose of Trazodone, and a muscle relaxer that she can have more frequently than every 8 hours . Discussed with Starr Regalado APRN. Patient should not have additional Phenobarb. as it will delay her discharge to [facility].
[2023-07-02] MEDS: LORazepam 0.5 MG TABLET PO (16:55)
[2023-07-02] MEDS: Enoxaparin Sodium 40 MG/0.4 ML SYRINGE SUBCUT (16:56)
[2023-07-02] MEDS: traZODone HCL 50 MG TABLET PO (20:44)
[2023-07-02] MEDS: Zolpidem Tartrate 5 MG TABLET PO (22:40)
[2023-07-03 03:40] VITALS: BP 121/72; PULSE 71; RESP 18; TEMP 36.7; O2SAT 95
[2023-07-03] MEDS: Famotidine 20 MG TABLET PO ×2 (06:20→15:51)
[2023-07-03 07:13] VITALS: BP 100/54; PULSE 77; RESP 16; TEMP 36.6; O2SAT 96
[2023-07-03] MEDS: methADONE HCl 20 MG/2 ML ORAL.CONC 75 MG PO (07:57)
[2023-07-03] MEDS: Nicotine 21 MG PATCH.TD24 TRANSDERMA (07:57)
[2023-07-03] MEDS: 0.9 % Sodium Chloride Flush 3 ML SYRINGE IVFLUSH ×3 (07:59→20:42)
[2023-07-03] MEDS: Acetaminophen 325 MG TABLET 650 MG PO (07:59)
--- NOTE | 2023-07-03 10:57 | MHC.CM.PN ---
Addendum entered by Alma Ferguson RN 07/03/23 15:47: PER RECOVERY TEAM PATIENT WILL DC TOMORROW 07/04 TO: [facility] SCHEDULED FOR INTAKE AT 11AM, SO WILL NEED LYFT LAST PATTERN GRADER AROUND 10AM. WILL NEED 30 DAY PRESCRIPTIONS FOR PATCH, PEPCID, TRAZADONE SENT TO [facility] [address] [facility]. MD AWARE. [facility] WILL NEED MED LIST WITH TIMES OF LAST DOSE. CM WILL CONTINUE TO FOLLOW Original Note: EMR REVIEWED. PER MD ROUNDS MEDICALLY CLEARED FOR DC. AWAITING PLACEMENT BY RECOVERY TEAM, WHO IS AWAITING RESPONSE FROM [facility]. CM WILL FOLLOW.
[2023-07-03 12:00] VITALS: BP 133/69; PULSE 75; RESP 16; TEMP 36; O2SAT 98
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
[2023-07-03 15:33] VITALS: BP 122/67; PULSE 81; RESP 18; TEMP 36.5; O2SAT 98
[2023-07-03 20:00] VITALS: BP 128/80; PULSE 84; RESP 18; TEMP 36.3; O2SAT 98
[2023-07-03] MEDS: traZODone HCL 50 MG TABLET PO (20:42)
--- NOTE | 2023-07-03 20:44 | P.EN_ITS ---
Event Note Date of Service: 07/03/23 Event Note: Addiction follow up [facility] referral follow up Updated clinical information sent to [facility] Patient accepted for admission 07/04 --arrive to facility by 11am ([address] [place] [address]) Attending and CM notified -30 day rx for medications to be sent to [place] [facility] - last dose letter and disharge medication list needed at discharge Patient aware and telephone screen completed this screen writer sent clinical forms to [place] [facility] for continuation of treatment Time Spent With Patient Time: Total time managing care of this patient today ____ minutes.
--- NOTE | 2023-07-03 20:44 | PM.EVENT ---
Event Note Date of Service: 07/03/23 Event Note: Addiction follow up [facility] referral follow up Updated clinical information sent to [facility] Patient accepted for admission 07/04 --arrive to facility by 11am ([address] [place] [address]) Attending and CM notified -30 day rx for medications to be sent to [place] [facility] - last dose letter and disharge medication list needed at discharge Patient aware and telephone screen completed this chief writer sent clinical forms to [facility] for continuation of treatment Time Spent With Patient Time: Total time managing care of this patient today ____ minutes.
[2023-07-03] MEDS: Cyclobenzaprine HCl 5 MG TABLET PO (20:46)
[2023-07-03] MEDS: Nicotine Polacrilex 2 MG GUM BUCCAL (20:47)
[2023-07-03] MEDS: Docusate Sodium 100 MG CAPSULE PO (20:47)
[2023-07-03] MEDS: Zolpidem Tartrate 5 MG TABLET PO (23:34)
[2023-07-04] VITALS: BP 141/92; PULSE 93; RESP 16; TEMP 36.9; O2SAT 98
[2023-07-04 04:00] VITALS: BP 125/77; PULSE 82; RESP 16; TEMP 36.8; O2SAT 97
[2023-07-04] MEDS: Famotidine 20 MG TABLET PO (05:35)
[2023-07-04 07:19] VITALS: BP 111/72; PULSE 70; RESP 16; TEMP 36.7; O2SAT 96
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
[2023-07-04] MEDS: Nicotine 21 MG PATCH.TD24 TRANSDERMA (08:11)
[2023-07-04] MEDS: methADONE HCl 20 MG/2 ML ORAL.CONC 75 MG PO (08:13)
[2023-07-04] MEDS: 0.9 % Sodium Chloride Flush 3 ML SYRINGE IVFLUSH (08:15)
[2023-07-04] MEDS: Nicotine Polacrilex 2 MG GUM BUCCAL (08:20)
[2023-07-04] MEDS: Cyclobenzaprine HCl 5 MG TABLET PO (08:20)
[2023-07-04] MEDS: Docusate Sodium 100 MG CAPSULE PO (08:23)
[2023-07-04] MEDS: methADONE HCl 20 MG/2 ML ORAL.CONC 5 MG PO (08:45)
--- NOTE | 2023-07-04 08:57 | MHC.CM.PN ---
EMR REVIEWED. PATIENT MEDICALLY CLEARED FOR DC TO [facility] [place] - INTAKE AT 11AM. [facility] SCHEDULED FOR 10AM. PATIENT, RN, AND AWARE.
--- NOTE | 2023-07-04 09:43 | PC.NURSE ---
Md Montes contacted via tiger text, notified that this was this RN's first time meeting patient. Pt appears drowsy and is nodding off constantly. When asked MD if this was normal for patient, MD stated ya . Pt states she was tired and had a late night. MD at bedside this AM spoke with patient. Pt was able to sit up and eat breakfast without nodding off, was able to get self dressed appeared less drowsy at this time. Pt to be discharged to rehabilitation facility in [place] this AM via [employer]. Spoke with Starr Regalado this AM regarding pt stating I will not leave if my methadone is not increased today , per Fabricio Pt due to be increased to 80mg total of methadone, last dose letter reflects this amount. Pt brought down to ED to obtain belongings and accompanied by hospital staff to entrance for [employer] ride.
== END 2023-07-04 09:51 | disposition home or self-care (01) | DRG 773 ==
LOC: HO.ED 15:20 → HO.EDOVER 16:59 → HO.IMC 06-26 14:45 → HO.S3 07-02 17:13
PROVIDERS: Internal Medicine; Student in an Organized Health Care Education/Training Program; Admitting Provider Student in an Organized Health Care Education/Training Program; Emergency Provider Emergency Medicine; Visit Provider Internal Medicine
DX: F11.23 Opioid dependence with withdrawal (principal); M62.82 Rhabdomyolysis; K70.0 Alcoholic fatty liver; F10.239 Alcohol dependence with withdrawal, unspecified; B19.20 Unspecified viral hepatitis C without hepatic coma; I89.0 Lymphedema, not elsewhere classified; R94.31 Abnormal electrocardiogram [ECG] [EKG]; F17.210 Nicotine dependence, cigarettes, uncomplicated; S92.002S Unspecified fracture of left calcaneus, sequela; V49.9XXS Car occupant (driver) (passenger) injured in unspecified traffic accident, sequela; Z71.6 Tobacco abuse counseling; Z79.899 Other long term (current) drug therapy
CPT/HCPCS: 36415; 71045; 80048; 80053; 80076; 80307; 81001; 82550; 83735; 84484; 84702; 85025; 85027; 86704; 86706; 86709; 86803; 87086; 87088; 87186; 87340; 87389; 93005; 99285; J1650; J2405; J2560; J7120

== ENCOUNTER 2023-06-25 16:43 | Outpatient (BNV) | payer OTHER, SELFPAY | END 2023-06-29 17:24 | PROVIDERS: Admitting Provider Student in an Organized Health Care Education/Training Program; Emergency Provider Emergency Medicine; Visit Provider Internal Medicine | DX: I45.81 Long QT syndrome (principal) | CPT/HCPCS: 93010 ==

== ENCOUNTER 2023-06-25 16:43 | Outpatient (BNV) | payer OTHER, SELFPAY | END 2023-06-30 15:50 | PROVIDERS: Admitting Provider Student in an Organized Health Care Education/Training Program; Emergency Provider Emergency Medicine; Visit Provider Internal Medicine | DX: I45.81 Long QT syndrome (principal) | CPT/HCPCS: 93010 ==

== ENCOUNTER → 2023-06-25 16:43 | Outpatient (BNV) | payer MEDICAID, OTHER, SELFPAY | PROVIDERS: Admitting Provider Student in an Organized Health Care Education/Training Program; Emergency Provider Emergency Medicine; Visit Provider Internal Medicine | DX: F11.93 Opioid use, unspecified with withdrawal (principal) | CPT/HCPCS: 99223; 99231; 99232; 99239 ==

== ENCOUNTER → 2023-06-25 16:43 | Outpatient (BNV) | payer MEDICAID, OTHER, SELFPAY | PROVIDERS: Admitting Provider Student in an Organized Health Care Education/Training Program; Emergency Provider Emergency Medicine; Visit Provider Nurse Practitioner Psychiatric/Mental Health | DX: F11.90 Opioid use, unspecified, uncomplicated (principal) | CPT/HCPCS: 99231; 99232; 99499 ==

== ENCOUNTER 2023-09-08 10:44 | Emergency (ER) | payer OTHER, SELFPAY ==
[2023-09-08 10:48] VITALS: BP 169/127; PULSE 100; RESP 20; TEMP 36.4; O2SAT 96; BMI 28.1
--- NOTE | 2023-09-08 11:47 | MHC.EDTECH ---
no answer at 1146 for labs
--- NOTE | 2023-09-08 12:11 | MHC.EDTECH ---
no answer at 1209 for labs
== END 2023-09-08 13:55 | disposition left against medical advice (07) ==
PROVIDERS: Emergency Provider Emergency Medicine
DX: F10.129 Alcohol abuse with intoxication, unspecified (principal); Y90.9 Presence of alcohol in blood, level not specified
CPT/HCPCS: 99281

== ENCOUNTER 2024-06-05 02:49 | Emergency (ER) | payer OTHER, SELFPAY ==
--- NOTE | ~2024-06-05 | XR_ITS ---
EXAMINATION: XR CHEST CLINICAL INFORMATION: Cough. Shortness of breath COMPARISON: X-ray dated June 25, 2023 TECHNIQUE: 2 views of the chest were obtained. FINDINGS: Cardiomediastinal silhouette overlaps the right hemithorax. Pulmonary reticular pattern, bilaterally and prominent pulmonary interstitium. No gross consolidation, pleural effusion or pneumothorax. Heart size appears normal. Osseous structures are intact. XR/XR chest 2V IMPRESSION: Acute on chronic airspace disease should be considered in the correct clinical settings. Electronically signed by: Hayden Weeks MD 06/05/2024 08:00 AM EMILIE
--- NOTE | 2024-06-05 02:52 | ECG_ITS ---
Test Reason : cp Blood Pressure : / mmHG Vent. Rate : 058 BPM Atrial Rate : 058 BPM P-R Int : 156 ms QRS Dur : 090 ms QT Int : 508 ms P-R-T Axes : 057 007 022 degrees QTc Int : 498 ms Sinus bradycardia with sinus arrhythmia Cannot rule out Inferior infarct , age undetermined Abnormal ECG When compared with ECG of 30-JUN-2023 15:50, No significant change was found Referred By: Generic ED Physician Electronically Signed By:Joss Nolasco
[2024-06-05 03:01] VITALS: BP 140/70; PULSE 97; O2SAT 96; BMI 29.9
[2024-06-05 04:00] VITALS: BP 137/84; PULSE 60; RESP 12; TEMP 36.5; O2SAT 93
[2024-06-05 04:23] LABS: Basophils Absolute Auto 0.1 X10*3/uL (0.0-0.2); Basophils Percent Auto 1.3 % (0-2); Eosinophils Absolute Auto 0.1 X10*3/uL (0.0-0.4); Eosinophils Percent Auto 2.4 % (0-4); Hematocrit 37.3 % (37.0-47.0); Hemoglobin 12.9 g/dl (12.0-16.0); Imm Gran Abs Auto 0.01 X10*3/uL (0.00-0.03); Imm Gran Pct Auto 0.2 % (0.0-0.4); Lymphocytes Absolute Auto 1.4 X10*3/uL (1.2-4.9); Lymphocytes Percent Auto 29.6 % (20-40); Mean Corpuscular HGB Conc 34.6 g/dl (31.0-35.0); Mean Corpuscular Hemoglobin 30.3 pg (27.0-33.0); Mean Corpuscular Volume 87.6 fL (80.0-98.0); Mean Platelet Volume 9.9 fL (9.4-12.3); Monocytes Absolute Auto 0.3 X10*3/uL (0.1-1.2); Monocytes Percent Auto 6.9 % (2-11); Neutrophils Absolute Auto 2.8 x10*3/uL (2.0-8.3); Neutrophils Percent Auto 59.6 % (45-73); Platelet Count 156 X10*3/uL (160-400); Red Blood Count 4.26 X10*6/uL (4.20-5.50); Red Cell Distribution Width 13.2 % (11.0-16.0); White Blood Count 4.7 X10*3/uL (4.8-10.8)
[2024-06-05 04:24] LABS: MANUAL DIFF FLAG NO
[2024-06-05 04:37] LABS: Alanine Aminotransferase 37 U/L (0-31); Albumin Level 3.4 g/dL (3.5-5.0); Alkaline Phosphatase 130 U/L (39-117); Anion Gap 15 (12-20); Aspartate Amino Transferase 91 U/L (5-31); Bilirubin Total 1.2 mg/dL (0.0-1.0); Blood Urea Nitrogen 6 mg/dL (9-16); Carbon Dioxide 22 mmol/L (22-29); Chloride 103 mmol/L (96-108); Creatinine Clr Calc Pharmacy 138.7; Estimated Glomerular Filt Rate > 60; Glucose Random 80 mg/dL (60-115); Potassium 3.4 mmol/L (3.3-5.1); Sodium 137 mmol/L (135-145); Total Protein 7.7 g/dL (6.5-8.0)
[2024-06-05 05:42] LABS: Troponin-I High Sensitivity < 2.7 ng/L (<3.5-17.0)
[2024-06-05 06:00] VITALS: BP 118/80; PULSE 60; RESP 14; TEMP 36.6; O2SAT 93
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
[2024-06-05] MEDS: methADONE HCl 20 MG/2 ML ORAL.CONC 40 MG PO (07:53)
--- NOTE | 2024-06-05 08:20 | PC.NURSE ---
Care of Pt assumed at change of shift. Pt noted to be resting comfortably with eyes closed. PD at bedside. Pt easily awakens for medication. Skin is warm and dry. Breaths and speech are slow, even, and unlabored. Pt requests food and takes medication w/o difficulty NAD noted.
[2024-06-05 08:23] VITALS: BP 115/66; PULSE 65; RESP 13; TEMP 36.9; O2SAT 91
[2024-06-05 08:27] VITALS: BP 115/66; PULSE 65; RESP 13; TEMP 36.9; O2SAT 91
== END 2024-06-05 08:40 ==
PROVIDERS: Emergency Provider Student in an Organized Health Care Education/Training Program; PCP Internal Medicine
DX: R07.89 Other chest pain (principal); R05.9 Cough, unspecified; R06.02 Shortness of breath; F17.210 Nicotine dependence, cigarettes, uncomplicated; R00.1 Bradycardia, unspecified; I49.8 Other specified cardiac arrhythmias; Z79.899 Other long term (current) drug therapy
CPT/HCPCS: 36415; 71046; 80053; 84484; 85025; 93005; 99283; 99285

== ENCOUNTER → 2024-06-05 02:52 | Outpatient (BNV) | payer OTHER, SELFPAY | PROVIDERS: Emergency Provider Student in an Organized Health Care Education/Training Program; PCP Internal Medicine; Visit Provider Internal Medicine Cardiovascular Disease | DX: R94.31 Abnormal electrocardiogram [ECG] [EKG] (principal) | CPT/HCPCS: 93010 ==

== ENCOUNTER → 2024-06-05 06:52 | Outpatient (BNV) | payer OTHER, SELFPAY | PROVIDERS: Emergency Provider Student in an Organized Health Care Education/Training Program; PCP Internal Medicine; Visit Provider Radiology Diagnostic Radiology | DX: R06.02 Shortness of breath (principal); R05.9 Cough, unspecified | CPT/HCPCS: 71046 ==

== ENCOUNTER 2025-01-29 16:28 | Outpatient (AMB) | payer OTHER, SELFPAY ==
[2025-01-29 16:30] VITALS: BP 124/90; PULSE 74; O2SAT 95; BMI 44.3
--- NOTE | 2025-01-29 16:30 | MHC.PC.OV ---
Vital Signs 01/29/25 16:30 Height 5 ft 6 in Weight 274 lb 7.608 oz BMI 44.3 BP 124/90 H Blood Pressure Location Lt brachial Position Sitting Pulse 74 Pulse Source Pulse Oximeter Pulse Oximetry (%) 95 Oxygen Delivery Method Room Air Intake Visit Reasons: establish care Control Supervisor Required: No Accompanied by: Self / Same As Patient Allergies amoxicillin (From Augmentin) Allergy (Unknown, Verified 01/29/25 16:51) Swelling clavulanic acid (From Augmentin) Allergy (Unknown, Verified 01/29/25 16:51) Swelling From AUGMENTIN Allergy (Severe, Uncoded 01/29/25 16:51) SWELLING From Augmentin Allergy (Severe, Uncoded 01/29/25 16:51) SWELLING Medication List - Last Reconciled 02/02/25 by Braden Schuler MD acamprosate 666 mg PO TID albuterol sulfate 90 mcg/actuation (Ventolin HFA) 2 puffs inhalation Q6H PRN dextroamphetamine-amphetamine 20 mg ER (Adderall XR) 20 mg PO BID fluticasone furoate-vilanterol 50-25 mcg/dose (Breo Ellipta) 1 inh inhalation DAILY hydroxyzine HCl 50 mg PO BID lidocaine 5% 1 patch topical DAILY melatonin 5 mg PO .BED TIME methadone 110 mg PO DAILY tiotropium bromide 1.25 mcg/actuation (Spiriva Respimat) 2 puffs inhalation DAILY zolpidem (Ambien) 5 mg PO BEDTIME Tobacco use date assessed: 01/29/25 Dental Screening Dental Screen Date: 01/29/25 Did you have a dental visit in the last 12 months?: No Did you have a dental problem in the last 6 months where you did not have access to dental care?: No Was dental information given to patient?: No HPI establish care HPI Details Patient comes in today to establish care - is a new patient to the practice Her previous PCP was at [facility] Patient reports that she has experienced multiple injuries in the past and has underwent several surgeries in the past, including reconstructive plastic surgery on her face, left knee surgery as well as insertion of a alonzo into her right tibia following trauma and significant injury (fracture) to her right tibia and right leg She also has (+) history of pneumonia and acute respiratory failure (+) Hx of alcohol use disorder and opioid use disorder but states that she will soon be 8 months clean and sober in a few days on 02/03/2025 Reports that she has been experiencing increased pain over her left ankle and her lower back lately and would like to have some Lidocaine patches prescribed to help with her pain Also needs a couple of her Rx refilled Patient denies any headaches or dizziness Denies any chest pains, no increased shortness of breath No nausea/vomiting, no abdominal pain No change in bowel habits noted [facility] Medical History (Updated 02/02/25 @ 21:54 by Barden Schuler MD) Morbid obesity with BMI of 40.0-44.9, adult Attention deficit disorder (ADD) Hepatitis C Asthma Insomnia Anxiety Opioid use disorder Right tibial fracture Alcohol use disorder Surgical History (Updated 01/29/25 @ 17:00 by Braden Schuler MD) History of left knee surgery Social History Household Members: None Housing: Homeless Do you presently have visiting nurse or other home services: No Alcohol intake: current Alcohol intake frequency: 3 or more drinks per day Alcohol type: beer Patient Tobacco Use Status: Current everyday Tobacco user Tobacco use type: Cigarette Cigarettes Per Day: 20 Second Hand Smoke Exposure: No Substance Use Type: Heroin service: No Current occupational exposures/hazards: No Cognitive needs: No Hearing needs: No Vision needs: No Questionnaire PHQ-9 Over the last 2 weeks, how often have you been bothered by any of the following problems? 1. Little interest or pleasure in doing things: nearly every day 2. Feeling down, depressed, or hopeless: nearly every day 3. Trouble falling or staying asleep, or sleeping too much: nearly every day 4. Feeling tired or having little energy: nearly every day 5. Poor appetite or overeating: nearly every day 6. Feeling bad about yourself - or that you are a failure or have let yourself or your family down: more than half the days 7. Trouble concentrating on things, such as reading the newspaper or watching television: more than half the days 8. Moving or speaking so slowly that other people could have noticed. Or the opposite - being so fidgety or restless that you have been moving around a lot more than usual: several days 9. Thoughts that you would be better off or of hurting yourself in some way: not at all Total score: 20 Depression Screening Interpretation: Positive Depression Screening Follow-up: Existing condition and In treatment Depression Screening Done: Yes 89916 - PHQ-9 Billing: Yes Source: Developed by Drs. Roberto Aguilar, Pily Fuller, Wade Joy and colleagues, with an educational jean paul from [employer]. Thrive Questionnaire Date Thrive assessed: 01/29/25 I am a: Patient What is your living situation today?: I do not have a steady places to live I am staying at a senior care Within the past 12 months, did the food you bought not last and you didn't have the money to get more?: Often true Within the past 12 months, did you worry whether your food would run out before you got money to buy more?: Often true Do you have trouble paying for medicines?: No Do you have trouble getting transportation to medical appointments?: Yes Do you have trouble paying your heating and electricity bill?: Yes Do you have trouble taking care of your child, family member or friend?: No Do you have trouble with day-to-day activities such as bathing, preparing meals, shopping, managing finances, etc.?: Yes Are you currently unemployed and looking for a job?: No Are you interested in more education?: No Please select the resources that you would like help with: Housing/Residential Currently or been in a relationship where the following occur: No concerns reported THRIVE Score: 5 AUDIT C Alcohol Use Questionnaire (AUDIT-C) 1. How often do you have a drink containing alcohol?: Never 3. How often do you have six or more drinks on one occasion?: Never Total Score: 0 Score Reviewed/Action Taken: Yes PIPO-7 AMB Questionnaire PIPO-7 Date PIPO - 7 assessed: 01/29/25 Feeling nervous, anxious, or on edge: 2 = More than half the days Not being able to stop or control worryin = More than half the days Worrying too much about different things: 2 = More than half the days Trouble relaxin = More than half the days Being so restless that it is hard to sit still: 0 = Not at all Becoming easily annoyed or irritable: 1 = Several days Feeling afraid as if something awful might happen: 0 = Not at all Total PIPO-7 score (0-4 normal; 5-9 mild; 10-14 moderate; 15-21 severe): 9 Source: Developed by Drs. Roberto Aguilar, Pily Fuller, Wade Joy and colleagues, with an educational jean paul from [employer]. Review of Systems Const Denies chills, Reports difficulty sleeping, Reports fatigue, Denies fever(s) and Denies headache(s) ENT Denies dysphagia, Denies dizziness, Denies otalgia, Denies headache(s), Denies neck pain, Denies odynophagia and Denies sore throat Card Denies chest pain, Denies palpitations and Reports dyspnea on exertion (mild) Resp Denies chest congestion, Denies cough, Reports dyspnea on exertion (mild) and Denies wheezing GI Denies abdominal pain, Denies constipation, Denies dysphagia, Denies heartburn, Denies diarrhea, Denies nausea, Denies odynophagia and Denies vomiting Denies difficulty voiding, Denies nocturia, Denies dysuria and Denies urinary urgency Musc Details: (+) chronic pain over the face/jaw Reports back pain (over the lower back), Reports arthralgias (involving multiple joints, including in the R knee and R lower leg) and Denies neck pain Skin/Breast Denies rash Neuro Denies dizziness and Denies headache(s) Psych Reports anxiety and Reports depression Endo Reports fatigue and Denies palpitations Aller/Immun Denies wheezing Physical exam (Primary Care) Vital Signs: Last Vital Signs Pulse 74 01/29/25 16:30 BP 124/90 H 01/29/25 16:30 Pulse Ox 95 01/29/25 16:30 Oxygen Delivery Method Room Air 01/29/25 16:30 BMI result Body Mass Index 44.3 Tobacco/Smoking Status: Tobacco use Status Tobacco use date assessed 01/29/25 01/29/25 16:38 Patient Tobacco Use Status Current everyday Tobacco 01/29/25 16:38 Tobacco use type Cigarette 01/29/25 16:38 PHQ-9: PHQ-9 Score PHQ-9: Total score 20 01/29/25 16:51 Depression Screening Interpretation: Positive Depression Screening Follow-up: Existing condition and In treatment Thrive Assessment: Date of Thrive Assessment Date Thrive assessed 01/29/25 01/29/25 16:38 Currently or been in a relationship where the following occur: No concerns reported Const General: no acute distress and alert HENMT Ears: TM's normal bilaterally and EAC's normal Throat: Yes posterior oropharynx normal and Yes tonsils normal (no TP congestion) Neck Neck: Yes supple and No lymphadenopathy Thyroid: Thyroid normal Resp Auscultation: clear to auscultation bilaterally, no rales and no wheezes Cardio Rate: regular rate Rhythm: regular rhythm Heart sounds: Murmur heart sound present systolic soft, II/ and at the apex GI Palpation (GI): Soft to palpation and nontender Auscultation: normal bowel sounds General: Yes no CVA tenderness Back/Spine/Pelvis Back: no CVA tenderness Thoracic/Lumbar Spine: lumbar spinal tenderness Skin Rashes: no rashes Extrem General: Yes no clubbing, cyanosis or edema Coding Level of Care Code New Pt Level 4 (38645) Diagnoses Cardiac murmur R01.1 Moderate persistent asthma without complication J45.40 Asthma severity: moderate Asthma persistence: persistent Asthma complication type: uncomplicated Left ankle pain, unspecified chronicity M25.572 Chronicity: unspecified Midline low back pain without sciatica, unspecified chronicity M54.50 Chronicity: unspecified Back pain laterality: midline Sciatica presence: without sciatica Hepatitis C virus infection without hepatic coma, unspecified chronicity B19.20 Viral hepatitis chronicity: unspecified Hepatic coma status: without hepatic coma Alcohol use disorder F10.90 Opioid use disorder F11.90 Attention or concentration deficit R41.840 Attention deficit type: attention or concentration deficit Insomnia, unspecified type G47.00 Insomnia type: unspecified Anxiety F41.9 Morbid obesity with BMI of 40.0-44.9, adult E66.01; Z68.41 Additional Codes PHQ-9 - 11714 - PHQ-9 Billing: Yes ([id number]) Assessment & Plan Assessment & Plan (1) Cardiac murmur: Code(s): R01.1 - Cardiac murmur, unspecified Category: Medical Plan: Will send patient for echocardiogram for further evaluation (2) Asthma: Code(s): J45.909 - Unspecified asthma, uncomplicated Category: Medical Qualifiers: Asthma severity: moderate Asthma persistence: persistent Asthma complication type: uncomplicated Qualified Code(s): J45.40 - Moderate persistent asthma, uncomplicated Plan: Continue Breo Ellipta 50-25 mcg 1 inhalation QD, Spiriva Respimat 1.25 mcg 2 inhalations QD and Ventolin HFA 2 inhalations Q 6hours PRN (3) Left ankle pain: Code(s): M25.572 - Pain in left ankle and joints of left foot Category: Medical Qualifiers: Chronicity: unspecified Qualified Code(s): M25.572 - Pain in left ankle and joints of left foot Plan: Will send her for x-rays of the left ankle for further evaluation (4) Low back pain: Code(s): M54.50 - Low back pain, unspecified Category: Medical Qualifiers: Chronicity: unspecified Back pain laterality: midline Sciatica presence: without sciatica Qualified Code(s): M54.50 - Low back pain, unspecified Plan: Will send her for lumbar spine x-rays for further evaluation Per request, will start her on Lidocaine 5% patch apply 1 patch to painful area on her lower back QD PRN (5) Hepatitis C: Code(s): B19.20 - Unspecified viral hepatitis C without hepatic coma Category: Medical Qualifiers: Viral hepatitis chronicity: unspecified Hepatic coma status: without hepatic coma Qualified Code(s): B19.20 - Unspecified viral hepatitis C without hepatic coma Plan: S/P Tx Will have patient also check her Hepatitis C viral load for follow up when she goes for her labs (6) Alcohol use disorder: Code(s): F10.90 - Alcohol use, unspecified, uncomplicated Category: Medical Plan: Patient states that she will soon be 8 months sober in a few days on 02/03/2025 Continue Acamprosate 666 mg TID Follow up with addiction medicine as scheduled (7) Opioid use disorder: Code(s): F11.90 - Opioid use, unspecified, uncomplicated Category: Medical Plan: Continue Methadone 110 mg daily Follow up with the Methadone clinic as scheduled (8) Attention deficit disorder (ADD): Code(s): F98.8 - Other specified behavioral and emotional disorders with onset usually occurring in childhood and adolescence Category: Medical Qualifiers: Attention deficit type: attention or concentration deficit Qualified Code(s): R41.840 - Attention and concentration deficit Plan: Continue Adderall XR 20 mg BID Follow up with psychiatry as scheduled (9) Insomnia: Code(s): G47.00 - Insomnia, unspecified Category: Medical Qualifiers: Insomnia type: unspecified Qualified Code(s): G47.00 - Insomnia, unspecified Plan: Sleep hygiene reinforced Continue Zolpidem 5 mg Q HS and Melatonin 5 mg Q HS (10) Anxiety: Code(s): F41.9 - Anxiety disorder, unspecified Category: Medical Plan: Continue Hydroxyzine 50 mg BID Follow up with psychiatry as scheduled (11) Morbid obesity with BMI of 40.0-44.9, adult: Code(s): E66.01 - Morbid (severe) obesity due to excess calories; Z68.41 - Body mass index [BMI] 40.0-44.9, adult Category: Medical Plan: Reinforced diet; exercise and weight loss are unrealistic given patient's physical issues Plan Follow up in 3 months Orders: Orders CA echo transthoracic complete 01/29/25 R01.1 - Cardiac murmur, unspecified Comprehensive [place]. Panel Fast 01/29/25 E78.00 - Pure hypercholesterolemia, unspecified Lipid Panel 01/29/25 E78.00 - Pure hypercholesterolemia, unspecified Vitamin D 25-OH Total 01/29/25 E55.9 - Vitamin D deficiency, unspecified Vitamin B12 and Folate 01/29/25 E53.8 - Deficiency of other specified B group vitamins Hepatitis C Viral Load 01/29/25 B19.20 - Unspecified viral hepatitis C without hepatic coma XR lumbar spine 2-3V 01/29/25 M54.50 - Low back pain, unspecified Complete Blood Count Auto Diff 01/29/25 D64.9 - Anemia, unspecified TSH reflex Free T4 01/29/25 E78.00 - Pure hypercholesterolemia, unspecified UA CC w/rflx Micro + Cult 01/29/25 R30.0 - Dysuria XR ankle LT min 3V 01/29/25 M25.572 - Pain in left ankle and joints of left foot Medications: New lidocaine 5% leave on most painful area for up to 12 hrs 1 patch topical DAILY 30 ea 0RF melatonin 5 mg PO .BED TIME fluticasone furoate-vilanterol 50-25 mcg/dose (Breo Ellipta) 1 inh inhalation DAILY
== END 2025-01-29 17:35 | disposition home or self-care (01) ==
LOC: HO.HMCH 16:29
PROVIDERS: PCP Internal Medicine; Visit Provider Internal Medicine
DX: R01.1 Cardiac murmur, unspecified (principal); J45.40 Moderate persistent asthma, uncomplicated; E66.01 Morbid (severe) obesity due to excess calories; Z68.41 Body mass index [BMI] 40.0-44.9, adult; M25.572 Pain in left ankle and joints of left foot; M54.50 Low back pain, unspecified; B19.20 Unspecified viral hepatitis C without hepatic coma; F10.90 Alcohol use, unspecified, uncomplicated; F11.90 Opioid use, unspecified, uncomplicated; R41.840 Attention and concentration deficit; G47.00 Insomnia, unspecified; F41.9 Anxiety disorder, unspecified

== ENCOUNTER → 2025-01-29 16:28 | Outpatient (BNVA) | payer OTHER, SELFPAY | PROVIDERS: PCP Internal Medicine; Visit Provider Internal Medicine | DX: M25.572 Pain in left ankle and joints of left foot (principal); M54.50 Low back pain, unspecified; R01.1 Cardiac murmur, unspecified; J45.40 Moderate persistent asthma, uncomplicated; B19.20 Unspecified viral hepatitis C without hepatic coma; F10.90 Alcohol use, unspecified, uncomplicated; F11.90 Opioid use, unspecified, uncomplicated; R41.840 Attention and concentration deficit; G47.00 Insomnia, unspecified; F41.9 Anxiety disorder, unspecified; E66.01 Morbid (severe) obesity due to excess calories; Z68.41 Body mass index [BMI] 40.0-44.9, adult | CPT/HCPCS: 96127; 99202 ==

== ENCOUNTER 2025-02-27 13:59 | Outpatient (AMB) | payer OTHER, SELFPAY ==
[2025-02-27 14:03] VITALS: BP 130/100; PULSE 85; O2SAT 97; BMI 45.5
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
== END 2025-02-27 14:32 | disposition home or self-care (01) ==
PROVIDERS: PCP Internal Medicine; Visit Provider Internal Medicine
DX: J45.40 Moderate persistent asthma, uncomplicated (principal); L03.116 Cellulitis of left lower limb; E66.01 Morbid (severe) obesity due to excess calories; Z68.42 Body mass index [BMI] 45.0-49.9, adult; M25.572 Pain in left ankle and joints of left foot; R41.840 Attention and concentration deficit; F10.90 Alcohol use, unspecified, uncomplicated; F11.90 Opioid use, unspecified, uncomplicated; G47.00 Insomnia, unspecified; F41.9 Anxiety disorder, unspecified

== ENCOUNTER → 2025-02-27 13:59 | Outpatient (BNVA) | payer OTHER, SELFPAY | PROVIDERS: PCP Internal Medicine; Visit Provider Internal Medicine | DX: L03.116 Cellulitis of left lower limb (principal); M25.572 Pain in left ankle and joints of left foot; J45.40 Moderate persistent asthma, uncomplicated; R41.840 Attention and concentration deficit; F10.90 Alcohol use, unspecified, uncomplicated; F11.90 Opioid use, unspecified, uncomplicated; G47.00 Insomnia, unspecified; F41.9 Anxiety disorder, unspecified; E66.01 Morbid (severe) obesity due to excess calories; Z68.42 Body mass index [BMI] 45.0-49.9, adult | CPT/HCPCS: 96127; 99212 ==

== ENCOUNTER → 2025-03-19 13:00 | Outpatient (REF) | payer OTHER, SELFPAY ==
--- OUTSIDE RECORDS SUMMARY | 2024-10-18 09:20 | XMS_ITS ---
Author Organization [facility] Address [address], [place] [id number] Care Team Providers Care Supervisor Composing Room Name Role Phone Lui Hilliard Primary Care Pro vider [phone] Elsa Jimenez Unavailable Encounters Encounter Location Date Provider Diagnosis [facility] [address] [place] [phone] 10/18/2024 Elsa Jimenez Plan Of Treatment No Information Progress Notes * Anna LUNSFORDDOB:[birth year] (39 yo F)Acc No.[id number]:10/18/2024 Case Management Patient: Jerzy Anna SCHAEFFER Provider: Payal Jimenez :1985 A ge:39 Y S ex:Female Date:10/18/2024 Address:[address] [place] [address] [id number] Pcp:Lui Nguyen Subjective: * Chief Complaints: * * Medical History: Objective: Assessment: Plan: * Treatment: * Images: Billing Information: * Visit Code: * Procedure Codes: Care Plan Details* * Electronic signature of Lance Jimenez on 03/19/2025 at 01:33 PM EDT Sign off status: Pending * Provider: Payal Jimenez Date: 10/18/2024 Generated for Na small/Jourdan/eTransmitting on: 0 03/19/2025 01:33 PM EDT
--- OUTSIDE RECORDS SUMMARY | 2024-11-14 09:00 | XMS_ITS ---
Author Organization [facility] Address [address] [place], [place] [id number] Care Team Providers Care Spout Worker Name Role Phone Lui Hilliard Primary Care Pro vider [phone] Elsa Jimenez Unavailable [phone] Encounters Encounter Location Date Provider Diagnosis [facility] [address] [place] [phone] 11/14/2024 Elsa Jimenez Plan Of Treatment No Information Progress Notes * Anna LUNSFORDDOB:[birth year] (39 yo F)Acc No.[id number]:11/14/2024 Case Management Patient: Jerzy Anna SCHAEFFER Provider: Payal Jimenez :1985 A ge:39 Y S ex:Female Date:11/14/2024 Address:[address] [place] [address] [id number] Pcp:Lui Nguyen Subjective: * Chief Complaints: * * Medical History: Objective: Assessment: Plan: * Treatment: * Images: Billing Information: * Visit Code: * Procedure Codes: Care Plan Details* * Electronic signature of Lance Jimenez on 03/19/2025 at 01:33 PM EDT Sign off status: Pending * Provider: Payal Jimenez Date: 11/14/2024 Generated for Na small/Jourdan/eTransmitting on: 0 03/19/2025 01:33 PM EDT
--- NOTE | ~2025-03-19 | XR_ITS ---
EXAMINATION: XR ANKLE 3 OR MORE VIEWS LEFT HISTORY: M25.572 - Pain in left ankle and joints of left foot COMPARISON: There are no prior studies available for comparison. FINDINGS: Three views of the left ankle are submitted. Osseous mineralization is normal. There is no fracture or dislocation. There is severe osteoarthritis of the talocalcaneal joint. There is a small plantar calcaneal spur. The soft tissues are unremarkable. XR/XR ankle LT min 3V IMPRESSION: Severe osteoarthritis of the talocalcaneal joint. Electronically signed by: Roberto King MD 03/19/2025 01:35 PM EDT
--- NOTE | ~2025-03-19 | XR_ITS ---
EXAMINATION: XR LUMBOSACRAL SPINE CLINICAL INFORMATION: M54.50 - Low back pain, unspecified COMPARISON: None available. TECHNIQUE: AP and lateral views FINDINGS: Small marginal osteophyte formation at multiple levels of the axial skeleton. No acute cortical disruption or malalignment. No lytic or blastic lesions. Punctate calcifications in the right hemiabdomen. XR/XR lumbar spine 2-3V IMPRESSION: Mild multilevel spondylosis. Electronically signed by: Hayden Weeks MD 03/19/2025 01:37 PM EDT
--- NOTE | 2025-03-19 13:30 | CA_ITS ---
Transthoracic Echocardiogram Patient (Last, First, Middle): Anna Lunsford, Gender: Female Date of : 1985 Age: 39 Procedure Date: 03/19/2025 Procedure Type: Transthoracic Echocardiogram Location: OP Height: 167.64 cm Weight: 127.92 kg BSA: 2.31 m2 Heart Rate: bpm BP: 130 / 102 mmHg Mma Fighter: TO Referring MD: Braden Schuler MD Symptoms: R01.1 - Cardiac murmur, unspecified Study Quality: Technically Difficult ECG Rhythm: Sinus Conclusions: - LV probably hyperdynamic with EF > 70%. - No obvious valvular pathology seen on this study. Findings Procedure Information The patient declines contrast. Left Ventricle Normal left ventricular cavity size. There is normal left ventricular wall thickness. Diastolic function is normal for age. Endocardial definition is suboptimal. Patient declined contrast. LV probably hyperdynamic with EF > 70%. No overt wall motion abnormalities. Right Ventricle Mildly increased right ventricular cavity size. There is normal right ventricular systolic function. Atria Both atria are normal in size. Aortic Valve There is a normal trileaflet aortic valve. There is mild calcification of the aortic valve. There is no aortic valve stenosis. There is no aortic valve regurgitation. Mitral Valve The mitral valve appears normal. There is no mitral valve regurgitation. There is no mitral valve stenosis. Pulmonic Valve The pulmonic valve is likely normal. Tricuspid Valve There is trace tricuspid valve regurgitation. There is no evidence of pulmonary hypertension. Great Vessels The asc aorta is normal in size. Venous The inferior vena cava was not well visualized. The inferior vena cava is normal in size. Pericardium/Pleural There is no evidence of pericardial effusion. Prior Study Comparison No prior study available for comparison. Recommendations, Care & Conclusions No obvious valvular pathology seen on this study. Measurements 2D Linear Measurements LVOT Diam: 2.40 3.0+(-)1.3 cm Mitral Valve MV Pk E: 0.90 MV PK A: 0.67 MV Decel Time: 265.00 E/A: 1.40 E'Lateral: 9.46 E'Medial: 7.51 E/E' Med: 12.00 E/E' Lat: 9.60 PHT: 78.00 MVA PHT: 2.[address] [place]: 3.41 Aortic Valve AoV Pk Richar: 2.29 AoV Mn Richar: 1.68 AoV VTI: 0.54 AoV Pk Grad: 21.00 Aov Mn Grad: 12.00 ANTONINA Cont.VTI: 2.42 LVOT LVOT Pk Richar: 1.17 LVOT Mn Richar: 0.82 LVOT VTI: 0.29 LVOT Pk Grad: 5.00 LVOT Mn Grad: 3.00 LVOT Diam: 2.40 LVOT Area: 4.52 Diastolic Function MV Pk E: 0.90 MV Pk A: 0.67 E/A: 1.40 E'Medial: 7.51 E/E' Med: 12.00 E' Laterial: 9.46 E/E' Lat: 9.60 Right Ventricle TAPSE (mm): 22.90 TVS' Richar: 12.40 Tricuspid Valve RA Press: 3.00 Great Vessels Aorta Sinus of Valsalva: 3.49 2.0-3.5 cm Ao Asc: 3.60 2.1-3.4 cm Updated in Other Vendor System with Status of Final Chun Shafer MD electronically signed on 03/20/2025 3:18:26 PM with status of Final
--- OUTSIDE RECORDS SUMMARY | 2025-03-19 13:33 | XMS_ITS | Patient Health Record ---
Author Organization [facility] Address [address], [place] [id number] Care Team Providers Care Braided Band Assembler Name Role [facility] [phone] Elsa Jimenez Unavailable Reason For Referral No Information Encounters Encounter Location Date Provider Diagnosis [facility] [address] [place] [address] [id number] 10/31/2024 Elsa Jimenez [facility] [address] [place] [address] [id number] 10/08/2024 Elsa Jimenez [facility] [address] [place] [address] [id number] 10/18/2024 Elsa Jimenez Plan Of Treatment No Information Insurance Providers Payer Name Payer Address Payer Phone Subscriber Number Group Number Insured Name Patient Relationship to Insured Coverage Start Date Coverage End Date [facility] [place] [employer] [address] [place] [phone] [id number] Anna Cuevas Self - patient is the insured 5 5
== END ==
LOC: HO.CARD 13:00
PROVIDERS: PCP Internal Medicine; Visit Provider Internal Medicine
DX: M25.572 Pain in left ankle and joints of left foot (principal); R01.1 Cardiac murmur, unspecified; M54.50 Low back pain, unspecified
CPT/HCPCS: 72100; 73610; 93306

== ENCOUNTER → 2025-03-19 13:08 | Outpatient (BNV) | payer OTHER, SELFPAY | PROVIDERS: PCP Internal Medicine; Visit Provider Radiology Diagnostic Radiology | DX: M54.50 Low back pain, unspecified (principal); M19.072 Primary osteoarthritis, left ankle and foot | CPT/HCPCS: 72100; 73610 ==

== ENCOUNTER → 2025-03-19 13:30 | Outpatient (BNV) | payer OTHER, SELFPAY | PROVIDERS: PCP Internal Medicine; Visit Provider Internal Medicine | DX: R01.1 Cardiac murmur, unspecified (principal); I35.8 Other nonrheumatic aortic valve disorders | CPT/HCPCS: 93306 ==